=== PATIENT | female | born 1935 | race Caucasian/White ===

== ENCOUNTER → 2023-07-05 08:08 | Outpatient (REF) | payer MEDICARE, OTHER, SELFPAY ==
--- NOTE | 2023-07-05 09:22 | CARDSERVLU ---
Echocardiogram with [facility] completed after protocol screening completed. Allergies verified.
Patent IV site: _Right antecubital 22 G PC____
IV site flushed with 0.9% NaCl pre and post administration.
Diluted bolus method utilized to enhance visualization of ventricular ng.
Total volume given: _3___ mL
Patient tolerated all procedures well without complications.
Heplock D/c ed at 0921, site clear, no redness, no edema. Pressure held for few minutes as pt on anticoagulants. No bleeding, 2x2 applied and taped. Pt offers no complaints.
== END ==
LOC: RCS 08:08
PROVIDERS: ATTENDING PHYSICIAN Internal Medicine Cardiovascular Disease; FAMILY PHYSICIAN Family Medicine
DX: I48.0 Paroxysmal atrial fibrillation (principal); I10 Essential (primary) hypertension
CPT/HCPCS: 93306; Q9950

== ENCOUNTER 2024-12-26 05:36 | Inpatient (IN) | payer MEDICARE, OTHER, SELFPAY ==
[2024-12-25 23:19] VITALS: BP 120/87
[2024-12-26] VITALS (12 sets, daily range): BP systolic 110–153; BP diastolic 49–96; BMI 28.3
[2024-12-26 01:10] LABS: Hematocrit 43.8 % (37.0-47.0); Hemoglobin 14.7 g/dL (12.0-16.0); Mean Corp Hgb Conc. 33.6 g/dL (33.0-37.0); Mean Corpuscular Volume 88.1 fL (81.0-99.0); Nucleated Red Blood Cells % 0 %; Platelet Count 266 10^3/uL (130-400); Red Cell Dist. Width 13.4 % (11.5-14.5)
--- NOTE | 2024-12-26 01:32 | ED.GENMED ---
History of Present Illness
<Sammi Rodriguez MD - Last Filed: 12/26/24 03:06>
General
Chief Complaint: Abdominal Symptoms
Source: patient
Time Seen by Provider: 12/26/24 01:19
History of Present Illness
History of Present Illness:
This patient is an 89-year-old female presents emergency department after developing UTI-like symptoms about a week or so ago. She saw her primary care doctor and her UA was consistent with a UTI put. She was put on antibiotics which she took for
about a week but did not feel any better. She went to see her primary care doctor again and states that she was placed on a different antibiotic which she brought with her, Bactrim. She states since starting this antibiotic, she developed nausea,
followed by several episodes of nonbloody vomiting today. She has anorexia. She describes mid abdominal 'pressure' that developed while in the waiting room that feels like a 'gas'. That pressure is improved compared to earlier, but continues
without specific provoking or relieving factors. She denies fever, chills, flank or back pain, dyspnea, chest pain, diarrhea, constipation, or other complaints.
Past History
<Sammi Rodriguez MD - Last Filed: 12/26/24 03:06>
Past History
ED Past Medical History: Arrthythmia, CAD, GERD, HTN and Other (Kidney stone, PE)
Social History
Tobacco: Non-smoker
Alcohol: Occasional
Drug: None
Personal:
Living: with family
Phy Exam
<Sammi Rodriguez MD - Last Filed: 12/26/24 03:06>
Physical Exam
Physical Exam:
GENERAL: Alert , in no apparent distress
EYE: pupils equal and reactive
NECK: Supple, no significant adenopathy.
ENT: o/p clr, mm slightly dry
CARDIAC: Regular rate and rhythm .
LUNGS: Clear breath sounds bilaterally, no acute respiratory distress, no wheezes/rales/rhonchi
ABDOMEN: Soft, mild mid abdominal tenderness, no r/g, slightly distended, no cvat
NEUROLOGICAL: Alert and oriented, no focal neuro deficits
SKIN: Warm and dry, skin intact.
MUSCULOSKELETAL: No edema, well perfused.
PSYCH: Normal and appropriate interaction.
Sepsis
<Esequiel Sosa DO - Last Filed: 12/27/24 22:45>
Sepsis Screening
Sepsis Assessment: Sepsis
Sepsis Screen
Sepsis Screen: Sepsis
Date: 12/27/24
Time: 22:44
Course
<Sammi Rodriguez MD - Last Filed: 12/26/24 03:06>
Orders/Labs/Results
Orders:
Orders
12/25/24 23:22
Complete Blood Count/With Diff Urgent
Comprehensive Metabolic Panel Urgent
Lipase Urgent
12/26/24 01:30
Morphine Sulfate 4 mg IV NOW STA
12/26/24 01:35
0.9% Sodium Chloride 500 ml [Nss] 500 ml IV BOLUS
12/26/24 02:56
CT Abd/pel Without Iv Or Oral Urgent
Comment:
Reason For Exam: mid abd pain
12/26/24 03:39
NG Tube [GI tube insertion- Treatment] ONCE
12/26/24 04:41
Lidocaine 2% [Lidocaine Uro-Jet 2%] 1 syringe .ROUTE .STK-MED ONE
12/26/24 04:50
Admit/Transfer Patient As Directed
Co-Sign Provider:
Level of Care: Inpatient admission
Assign to:: Telemetry
Physician / Group: Indu
Diagnosis: Small bowel obstruction
Reason for Telemetry: Medication for Arrhythmia
Date to Stop Telemetry: 12/28/24
Time to Stop Telemetry: 11:00
Reason for Hospitalization: Small bowel obstruction
Expected length of stay greater than two midnights?: Yes
ELOS- Estimated Length of Stay in days: 2
I certify the patient meets the requirements for IP care: Yes
12/26/24 04:58
Urinalysis Reflex To Culture Urgent
Date Specimen was Collected: 12/26/24
Time Specimen was Collected: 04:54
Urine Microscopic Reflex Cult Urgent
Urine Culture Urgent
GLENDY Source: U
Specimen Description:
Date Specimen was Collected: 12/26/24
Time Specimen was Collected: 04:54
12/26/24 05:05
PRN Pain Medication Management As Directed
May give lesser potent ordered pain med per pt: Yes
preference::
Protocol:: Medication orders for pain may be administered in a
manner that supports deferring to patient preference
when the pt is:
- Requesting an ordered lesser potent pain medication.
Least to most potent pain medications are defined
as: acetaminophen < NSAID < tramadol < opioids
(morphine, oxycodone, hydromorphone).
- Requesting a lesser dose of the same medication IF
ORDERED.
- Requesting a less intrusive route of administration
if both routes are prescribed by the provider (PO <
IV).
12/26/24 05:10
Code Status As Directed
Resuscitation Status: Full Code
12/26/24 05:24
PRN Pain Medication Management As Directed
May give lesser potent ordered pain med per pt: Yes
preference::
Protocol:: Medication orders for pain may be administered in a
manner that supports deferring to patient preference
when the pt is:
- Requesting an ordered lesser potent pain medication.
Least to most potent pain medications are defined
as: acetaminophen < NSAID < tramadol < opioids
(morphine, oxycodone, hydromorphone).
- Requesting a lesser dose of the same medication IF
ORDERED.
- Requesting a less intrusive route of administration
if both routes are prescribed by the provider (PO <
IV).
12/26/24 05:34
CR Chest - 2 Views Stat
Comment:
Reason For Exam: SOB, ng tube placement
12/26/24 05:42
Acetaminophen [Tylenol/Feverall] 650 mg RECTAL Q4HPRN PRN
HYDROmorphone [Dilaudid] 0.5 mg IV Q4HPRN PRN
Ipratropium/Albuterol Sulfate [Duoneb] 3 ml INH R Q4HPRN PRN
Ondansetron Injectable [Zofran] 4 mg IV Q6HPRN PRN
12/26/24 05:42
Consult Notification Routine
Specialty to Notify: Nephrology
Date consulting provider notified: 12/26/24
Time consulting provider notified: 14:15
Notified:: Provider
NEPHROLOGY CONSULT Routine
Consulting Provider: Kareen Shaikh
Was physician already notified: No
Reason for consult: ADELA, SBO, recent abx use
SURGICAL CONSULT Routine
Consulting Provider: Edy Stephens
Was physician already notified: Yes
VTE Contraindication Routine
VTE Mechanical Device Contraindication: Medical Contraindication
Pharmocologic Contraindication: Medical Contraindication
Activity As Directed
Activity Level: With Assistance
Gastrointestinal Tubes As Directed
Type: [place] sump
To suction?: Yes
Type of suction: Low intermittent
Directions to clamp NG tube: for activity
Irrigate tube?: Yes
Irrigant: Tap Water
Frequency: Q4H
Amount in mls: 30
Irrigation Directions: Irrigate Q4H and PRN
Intake/ Output As Directed
Frequency: Per unit guidelines
Vital Signs As Directed
Frequency: Per unit guidelines
Weight As Directed
Frequency: Daily
Pulse Ox/cont/shift [RESP] Routine
Quantity: 1
Pulse Ox/spot Check [RESP] Routine
Quantity: 1
12/26/24 05:56
Basic Metabolic Panel IN AM
Complete Blood Count/No Diff IN AM
Magnesium IN AM
12/26/24 Breakfast
NPO
Allow oral meds: Yes
Allow clear liquids: No
NPO with Ice Chips: Yes
Dextrose 5%/0.9%Sodchl 1000 ml [D5/0.9% Sodium Chloride] 1,000 ml IV 100 mls/hr
12/26/24 08:00
Budesonide/Formoterol 160/4.5 [Symbicort 160/4.5 Mcg Inhaler] 2 puff INH R BID
12/26/24 18:00
Amiodarone [Pacerone] 200 mg PO QPM
Amlodipine [Norvasc] 5 mg PO QPM
Metoprolol Xl [Toprol Xl] 25 mg PO QPM
Rivaroxaban [Xarelto] 15 mg PO QPM
12/26/24 22:00
Famotidine [Pepcid] 20 mg IV HS
12/28/24 11:00
DC Protocol for Telemetry ONCE
Abnormal Lab Results
12/26/24 12/26/24
00:54 04:58
MPV 11.1 H fL
(7.4-10.4)
Abs Immat Gran (auto) 0.1 H 10^3/uL
(0-0.05)
Absolute Neuts (auto) 8.3 H 10^3/uL
(1.4-6.5)
Absolute Lymphs (auto) 0.6 L 10^3/uL
(1.2-3.4)
Immature Gran % 0.6 H %
(0-0.5)
Neutrophils % 85.9 H %
(42.2-75.2)
Lymphocytes % 6.4 L %
(20.5-51.1)
Potassium 5.3 H mmol/L
(3.5-5.1)
Carbon Dioxide 20 L mmol/L
(22-30)
BUN 38 H mg/dl
(7-17)
Creatinine 1.9 H mg/dL
(0.6-1.0)
Glucose 159 H mg/dl
(70-99)
Calcium 10.5 H mg/dl
(8.4-10.2)
AST 53 H U/L
(14-36)
ALT 65 H U/L
(0-35)
Ur Occult Blood Reflex 2+ A
(Negative)
Leukocyte Esterase Rfl 3+ A
(Negative)
Urine WBC (Reflex) 90-100 A /HPF
(0-5)
Urine Albumin (Reflex) 2+ A
(Neg - Trace)
12/26/24 00:54
12/26/24 00:54
Vital Signs
Initial and Last Documented VS:
Initial Vital Signs
Temp Pulse Resp BP Pulse Ox
97.5 F 67 18 120/87 97
12/25/24 23:19 12/25/24 23:19 12/25/24 23:19 12/25/24 23:19 12/25/24 23:19
Last Documented Vital Signs
Temp Pulse Resp BP Pulse Ox
97.9 F 66 16 147/68 95
12/27/24 19:20 12/27/24 19:40 12/27/24 19:40 12/27/24 19:20 12/27/24 19:40
Elsielt;Esequiel Sosa, DO - Last Filed: 12/27/24 22:45>
Orders/Labs/Results
Orders:
Orders
12/25/24 23:22
Complete Blood Count/With Diff Urgent
Comprehensive Metabolic Panel Urgent
Lipase Urgent
12/26/24 01:30
Morphine Sulfate 4 mg IV NOW STA
12/26/24 01:35
0.9% Sodium Chloride 500 ml [Nss] 500 ml IV BOLUS
12/26/24 02:56
CT Abd/pel Without Iv Or Oral Urgent
Comment:
Reason For Exam: mid abd pain
12/26/24 03:39
NG Tube [GI tube insertion- Treatment] ONCE
12/26/24 04:41
Lidocaine 2% [Lidocaine Uro-Jet 2%] 1 syringe .ROUTE .STK-MED ONE
12/26/24 04:50
Admit/Transfer Patient As Directed
Co-Sign Provider:
Level of Care: Inpatient admission
Assign to:: Telemetry
Physician / Group: Indu
Diagnosis: Small bowel obstruction
Reason for Telemetry: Medication for Arrhythmia
Date to Stop Telemetry: 12/28/24
Time to Stop Telemetry: 11:00
Reason for Hospitalization: Small bowel obstruction
Expected length of stay greater than two midnights?: Yes
ELOS- Estimated Length of Stay in days: 2
I certify the patient meets the requirements for IP care: Yes
12/26/24 04:58
Urinalysis Reflex To Culture Urgent
Date Specimen was Collected: 12/26/24
Time Specimen was Collected: 04:54
Urine Microscopic Reflex Cult Urgent
Urine Culture Urgent
GLENDY Source: U
Specimen Description:
Date Specimen was Collected: 12/26/24
Time Specimen was Collected: 04:54
12/26/24 05:05
PRN Pain Medication Management As Directed
May give lesser potent ordered pain med per pt: Yes
preference::
Protocol:: Medication orders for pain may be administered in a
manner that supports deferring to patient preference
when the pt is:
- Requesting an ordered lesser potent pain medication.
Least to most potent pain medications are defined
as: acetaminophen < NSAID < tramadol < opioids
(morphine, oxycodone, hydromorphone).
- Requesting a lesser dose of the same medication IF
ORDERED.
- Requesting a less intrusive route of administration
if both routes are prescribed by the provider (PO <
IV).
12/26/24 05:10
Code Status As Directed
Resuscitation Status: Full Code
12/26/24 05:24
PRN Pain Medication Management As Directed
May give lesser potent ordered pain med per pt: Yes
preference::
Protocol:: Medication orders for pain may be administered in a
manner that supports deferring to patient preference
when the pt is:
- Requesting an ordered lesser potent pain medication.
Least to most potent pain medications are defined
as: acetaminophen < NSAID < tramadol < opioids
(morphine, oxycodone, hydromorphone).
- Requesting a lesser dose of the same medication IF
ORDERED.
- Requesting a less intrusive route of administration
if both routes are prescribed by the provider (PO <
IV).
12/26/24 05:34
CR Chest - 2 Views Stat
Comment:
Reason For Exam: SOB, ng tube placement
12/26/24 05:42
Acetaminophen [Tylenol/Feverall] 650 mg RECTAL Q4HPRN PRN
HYDROmorphone [Dilaudid] 0.5 mg IV Q4HPRN PRN
Ipratropium/Albuterol Sulfate [Duoneb] 3 ml INH R Q4HPRN PRN
Ondansetron Injectable [Zofran] 4 mg IV Q6HPRN PRN
12/26/24 05:42
Consult Notification Routine
Specialty to Notify: Nephrology
Date consulting provider notified: 12/26/24
Time consulting provider notified: 14:15
Notified:: Provider
NEPHROLOGY CONSULT Routine
Consulting Provider: Kareen Shaikh
Was physician already notified: No
Reason for consult: ADELA, SBO, recent abx use
SURGICAL CONSULT Routine
Consulting Provider: Edy Stephens
Was physician already notified: Yes
VTE Contraindication Routine
VTE Mechanical Device Contraindication: Medical Contraindication
Pharmocologic Contraindication: Medical Contraindication
Activity As Directed
Activity Level: With Assistance
Gastrointestinal Tubes As Directed
Type: [place] sump
To suction?: Yes
Type of suction: Low intermittent
Directions to clamp NG tube: for activity
Irrigate tube?: Yes
Irrigant: Tap Water
Frequency: Q4H
Amount in mls: 30
Irrigation Directions: Irrigate Q4H and PRN
Intake/ Output As Directed
Frequency: Per unit guidelines
Vital Signs As Directed
Frequency: Per unit guidelines
Weight As Directed
Frequency: Daily
Pulse Ox/cont/shift [RESP] Routine
Quantity: 1
Pulse Ox/spot Check [RESP] Routine
Quantity: 1
12/26/24 05:56
Basic Metabolic Panel IN AM
Complete Blood Count/No Diff IN AM
Magnesium IN AM
12/26/24 Breakfast
NPO
Allow oral meds: Yes
Allow clear liquids: No
NPO with Ice Chips: Yes
Dextrose 5%/0.9%Sodchl 1000 ml [D5/0.9% Sodium Chloride] 1,000 ml IV 100 mls/hr
12/26/24 08:00
Budesonide/Formoterol 160/4.5 [Symbicort 160/4.5 Mcg Inhaler] 2 puff INH R BID
12/26/24 18:00
Amiodarone [Pacerone] 200 mg PO QPM
Amlodipine [Norvasc] 5 mg PO QPM
Metoprolol Xl [Toprol Xl] 25 mg PO QPM
Rivaroxaban [Xarelto] 15 mg PO QPM
12/26/24 22:00
Famotidine [Pepcid] 20 mg IV HS
12/28/24 11:00
DC Protocol for Telemetry ONCE
Abnormal Lab Results
12/26/24 12/26/24
00:54 04:58
MPV 11.1 H fL
(7.4-10.4)
Abs Immat Gran (auto) 0.1 H 10^3/uL
(0-0.05)
Absolute Neuts (auto) 8.3 H 10^3/uL
(1.4-6.5)
Absolute Lymphs (auto) 0.6 L 10^3/uL
(1.2-3.4)
Immature Gran % 0.6 H %
(0-0.5)
Neutrophils % 85.9 H %
(42.2-75.2)
Lymphocytes % 6.4 L %
(20.5-51.1)
Potassium 5.3 H mmol/L
(3.5-5.1)
Carbon Dioxide 20 L mmol/L
(22-30)
BUN 38 H mg/dl
(7-17)
Creatinine 1.9 H mg/dL
(0.6-1.0)
Glucose 159 H mg/dl
(70-99)
Calcium 10.5 H mg/dl
(8.4-10.2)
AST 53 H U/L
(14-36)
ALT 65 H U/L
(0-35)
Ur Occult Blood Reflex 2+ A
(Negative)
Leukocyte Esterase Rfl 3+ A
(Negative)
Urine WBC (Reflex) 90-100 A /HPF
(0-5)
Urine Albumin (Reflex) 2+ A
(Neg - Trace)
12/26/24 00:54
12/26/24 00:54
Vital Signs
Initial and Last Documented VS:
Initial Vital Signs
Temp Pulse Resp BP Pulse Ox
97.5 F 67 18 120/87 97
12/25/24 23:19 12/25/24 23:19 12/25/24 23:19 12/25/24 23:19 12/25/24 23:19
Last Documented Vital Signs
Temp Pulse Resp BP Pulse Ox
97.9 F 66 16 147/68 95
12/27/24 19:20 12/27/24 19:40 12/27/24 19:40 12/27/24 19:20 12/27/24 19:40
<Sammi Rodriguez MD - Last Filed: 12/26/24 03:06>
*Pulse Oximetry
SaO2: 98
Oxygen Mode of Delivery: Room air
<Esequiel Sosa DO - Last Filed: 12/27/24 22:45>
*Pulse Oximetry
Patient hypoxic: no
*Critical Care Note
Total Time (30-74mins, 75-104mins- exclusive of procedures): Not Applicable
<Sammi Rodriguez MD - Last Filed: 12/26/24 03:06>
Update Note
Update Note:
Patient presents to the Emergency Department with abdominal pain nausea vomiting
Number and Complexity of Problems Addressed at the Encounter
� Chronic conditions affecting care:
� Acute Exacerbation and/or Progression of Chronic Illness:
� Differential Diagnosis includes: But not limited to
Amount and/or Complexity of Data to be Reviewed and Analyzed
� I performed an independent evaluation of and my interpretation is:
EKG:
CT:
Xrays:
Laboratory Studies: Normal white blood cell count hemoglobin and platelets
Other:
� Review of other/old records reveals:
� Clinical information was obtained by an independent historian:
� Prescriptions/Medications Considered but not given:
� Further testing considered but not performed:
Risk of Complications and/or Morbidity or Mortality of Patient Management
� Social determinants of health affecting care:
� Discussion with other providers (PCP, Hospitalists, Consultants, etc):
� Escalation of care including admission/observation vs risk of discharge considered: CT pending, labs consistent with new renal insufficiency, IV fluids started, patient will be admitted, signout regarding follow-up on studies.
ED Attending Note
<Sammi Rodriguez MD - Last Filed: 12/26/24 03:06>
-
Portions of this chart may have been created with voice recognition software.� Occasional wrong word or��sound alike� substitutions may have occurred due to the inherent limitations of voice recognition software.
<Esequiel Sosa DO - Last Filed: 12/27/24 22:45>
ED Attending Note
Patient seen and examined by attending physician: Yes
ED Attending Note:
89-year-old female with abdominal distention. CT scan shows distal SBO. Patient to be admitted to the hospitalist service. NG tube will be placed. Also renal insufficiency. Patient seen in signout. On my independent physical exam she is awake
alert and oriented. Minimal acute distress. Answering appropriate questions. Does not request any pain medication at this time. Hospitalist aware of admission.
Discharge Plan
Departure
Patient Disposition: Admit
Date of Disposition: 12/26/24
Time of Disposition: 03:48
Presentation/result/management discussed w/ accepting MD/DO: Hospitalist
Discharge Problem:
SBO (small bowel obstruction), Acute kidney injury
Interventions
Interventions:
*Risk Screen - Suicide Last Done: 12/26/24 00:48
*General Assessment Last Done: 12/26/24 00:48
*Neglect/Abuse Screening Last Done: 12/26/24 00:48
*ED- Fall Risk Assessment Last Done: 12/26/24 00:48
*ED COVID-19 Vaccine History Last Done: 12/26/24 00:48
*ED Influenza Vaccine History Last Done: 12/26/24 00:48
*Nursing Disposition Last Done: 12/26/24 14:03
DP-Edxnep-Uvsmkbyvtf Assessment Last Done: 12/26/24 00:48
Discharge Date and Time
Discharge Date/Time: 12/26/24 14:04
[2024-12-26 01:34] LABS: ALT (SGPT) 65 U/L (0-35); AST (SGOT) 53 U/L (14-36); Albumin 4.7 g/dl (3.5-5.0); Alkaline Phosphatase 80 U/L (38-126); Blood Urea Nitrogen 38 mg/dl (7-17); Calcium 10.5 mg/dl (8.4-10.2); Carbon Dioxide 20 mmol/L (22-30); Chloride 104 mmol/L (98-107); Estimated Creatinine Clearance 21 ml/min; Glucose 159 mg/dl (70-99); Lipase 78 U/L (23-300); Potassium 5.3 mmol/L (3.5-5.1); Sodium 135 mmol/L (135-145); Total Protein 8.2 g/dl (6.3-8.2); eGFR 25.24
[2024-12-26] MEDS: NSS 500 IV (01:55)
[2024-12-26] MEDS: MORPHINE SULFATE 4 MG IV (01:55)
--- NOTE | 2024-12-26 04:27 | HPS.HSE ---
Family Physician
-
Family Physician: Joe Manning
Chief Complaint
-
Abdominal pain
History of Present Illness
This is a 89-year-old who has past medical history significant for atrial fibrillation on anticoagulation and status post cardioversion and prior PVI ablation, GERD, hyperlipidemia, hypothyroid, hypertension, CAD, obesity, scheduled for left kidney
presenting to the emergency department with worsening abdominal symptoms.
Patient reported that she had developed symptoms consistent with urinary tract infection about 2wks week ago. Symptoms worsening trace of blood on her depends. She did not have dysuria urgency or frequency. She had a UA which was also consistent
with a UTI and she was placed on antibiotics for which she took about 1 week and did not have any improvements in the intermittent hematuria.. She was seen by PMD again and was then started on Bactrim. She stated that after starting the Bactrim
she developed nausea and multiple nonbloody nonbilious emesis. She took Bactrim for about 3 days. Since then she has not been able to tolerate p.o. She describes mid abdominal discomfort and a sensation of bloating. She also reports inability to
inhale deeply which she attributes to the abdominal distention. She denies having any diarrhea. She denies any flank pain, urgency and incontinence or dysuria. She denies any prior constipation. She reports her pressure is improved compared to
prior.
In the emergency department he was afebrile, blood pressure was 117/54 with a pulse rate of 63 and she was satting 96% on room air.
CBC was unremarkable electrolytes were stable, BUN and creatinine were elevated at 39 and 1.9 compared to her baseline of 15 and 0.7 respectively. There is a mild elevation in AST and ALT but normal bilirubin and alk phos.
Patient had a CT of the abdomen pelvis without contrast showing findings compatible with distal small bowel obstruction, dilated fluid loops of small bowel throughout the abdomen and pelvis measuring up to 4.1 cm in diameter with abrupt transition
points seen centrally to lower abdomen. No signs of ischemia or perforation. Moderate distention of the stomach. Nonobstructing left nephrolithiasis.
Medical History
Past Medical History
Past Medical History: Reports Other
Additional Past Medical History:
CAD
Hypertension
Atrial fibrillation status post cardioversion ,status post PVI and ablation 2011
GERD
Hypothyroid
Depression
Obesity
Nephrolithiasis
History of PE
Past Surgical History: Reports Bowel Resection (Bowel resection for a nonmalignant mass with reanastomosis.), Urological (Left ureteroscopy with stone removal) and Other (Left lumpectomy)
Social History
Tobacco: Non-smoker
Alcohol: None
Drug: None
Personal:
Living: With Family
Family History
Family History: Not pertinent
Allergies / Home Medications
Allergies reflects when Allergies were last updated in [facility].
Home Medications with original date entered in [facility] [facility]
Allergy/Medication List:
Allergies
Allergy/AdvReac Type Severity Reaction Status Date / Time
No Known Allergies Allergy Verified 12/08/22 11:18
Home Medications
escitalopram oxalate 20 mg tablet 20 mg PO QPM Mental Health/Anxiety 04/03/11
simvastatin 20 mg tablet 20 mg PO QPM High cholesterol 03/03/19
amlodipine 5 mg tablet 5 mg PO QPM Blood pressure 05/09/21
metoprolol succinate 25 mg tablet,extended release 24 hr 25 mg PO QPM Arrhythmia 05/09/21
amiodarone 200 mg tablet (Pacerone) 200 mg PO QPM Arrhythmia #30 tabs 05/22/21
rivaroxaban 20 mg tablet (Xarelto) 20 mg PO QPM Blood clot prevention/tx #30 tabs 05/22/21
biotin 5,000 mcg sublingual tablet 5,000 mcg sublingual DAILY 06/22/22
budesonide 160 mcg-glycopyr 9 mcg-formot 4.8 mcg/actuation HFA inhaler (Breztri Aerosphere) 2 inh inhalation BID 06/22/22
famotidine 20 mg tablet (Pepcid) 20 mg PO QPM 06/22/22
furosemide 20 mg tablet (Lasix) 20 mg PO DAILY 06/22/22
arformoterol 15 mcg/2 mL solution for nebulization 2 ml inhalation DAILY 12/08/22
bupropion HCl 150 mg 24 hr tablet, extended release 150 mg PO DAILY 12/26/24
Review of Systems
-
Constitutional: Reports No Symptoms
EENT: Reports No Symptoms
Respiratory: Reports No Symptoms
Cardiac: Reports No Symptoms
Abdomen/GI: Reports Abdominal Pain, Nausea and Vomiting
: Reports No Symptoms
Musculoskeletal: Reports No Symptoms
Skin: Reports No Symptoms
Neurological: Reports No Symptoms
Endocrine: Reports No Symptoms
Hematologic/Lymphatic: Reports No Symptoms
Psych: Reports No Symptoms
Physical Exam
Vital Signs
Vital Signs
Temp Pulse Resp BP Pulse Ox
97.5 F 63 23 117/54 96
12/25/24 23:19 12/26/24 03:45 12/26/24 03:45 12/26/24 02:07 12/26/24 03:45
Physical Exam
General: Well Developed, Well Nourished and No Apparent Distress
HEENT: NormoCephalic, Moist mucous membranes and Atraumatic
Respiratory: Clear and Other (Conversationally dyspneic)
Cardiac: S1/S2 and Regular Rhythm; No Murmur or Rub
GI: Soft, Non Tender, Normal Bowel Sounds and Distended (moderately distended); No Organomegaly
Rectal: Deferred by Provider
Musculoskeletal: No Clubbing, No Cyanosis and No Edema
Skin: No Rash
Neuro: AO x 3 and Nonfocal/grossly intact
Laboratory Results
-
12/26/24 00:54
12/26/24 00:54
Laboratory Results
Total Bilirubin 1.2 mg/dl (0.2-1.3) 12/26/24 00:54
AST 53 U/L (14-36) H 12/26/24 00:54
ALT 65 U/L (0-35) H 12/26/24 00:54
Alkaline Phosphatase 80 U/L (38-126) 12/26/24 00:54
Lipase 78 U/L (23-300) 12/26/24 00:54
Data Reviewed
-
CT Scan: Report Reviewed by me
Lab Data: Labs Reviewed by me
Old Records: Reviewed
Impression/Plan
-
IMPRESSION:
89-year-old with past medical history significant for atrial fibrillation on anticoagulation, hypertension, GERD, hyperlipidemia who presents with complaints of abdominal pain nausea and vomiting in the setting of 1 week management of urinary tract
infection symptoms and positive outpatient UA for which she underwent 1 week treatment with antibiotics without improvement and then currently on Bactrim. Found to have small bowel obstruction with transition point on CT scan without ischemia.
Labs notable for hyperkalemia to 5.3, ADELA with a creatinine of 3.9 and a BUN of 39. She has no signs of systemic infection. There is no leukocytosis.
PLAN:
Small bowel obstruction - h/o bowel resection, no other intraabdominal surgery, sbo likely on the basis of adhesions
- Admit to MedSurg
- Given degree of obstruction on CT scan and abdominal symptoms, NG tube placed
- N.p.o. for now except meds
- Patient on furosemide, holding that for now
- Gentle hydration
- Surgery consult
ADELA -creatinine 1.9 up from a baseline of 0.7. BUN also elevated. This in the setting of recent UTI, antibiotic use and decreased p.o. intake. Likely multifactorial with prerenal azotemia plus possible intrinsic renal disease from
antibiotics/interstitial nephritis. 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
- Holding Bactrim for now
- UA, and urine sediments
- IV fluids for now, monitor i/o, weight, edema and respiratory status
- Avoid nephrotoxin
- Nephrology consult
Urinary tract symptoms - mostly hematuria. No dysuria, frequency/urgency or flank pain. H/O nephrolithiasis with nonobstructing left kidney stone on current CT. She is on rivaroxaban.
- Obtain UA and urine culture,
- IV ceftriaxone for clearly positive u/a given apparent failure of oral outpatient tx
Atrial fibrillation-
- Continue metoprolol succinate daily
- Continue Xarelto 15mg for now
Emphysema - Some conversational dyspnea. NO wheezing. No hypoxia. No peripheral edema
- obtain chest xray
- decompression w/ ng
- continue nebs prn
- continue ICS/LABA
DVT prophylaxis�on Xarelto
CODE STATUS�DNR
[2024-12-26 05:05] LABS: Urine Character Clear (Clear)
[2024-12-26 05:22] LABS: Urine Red Blood Cell 0-2 /HPF (0-2)
[2024-12-26 05:23] LABS: Urine White Cell 90-100 /HPF (0-5)
[2024-12-26] MEDS: D5/0.9% SODIUM CHLORIDE 1000 IV (06:23)
[2024-12-26 06:31] LABS: Hematocrit 37.8 % (37.0-47.0); Hemoglobin 12.6 g/dL (12.0-16.0); Mean Corp Hgb Conc. 33.3 g/dL (33.0-37.0); Mean Corpuscular Volume 88.9 fL (81.0-99.0); Platelet Count 242 10^3/uL (130-400); Red Cell Dist. Width 13.5 % (11.5-14.5)
[2024-12-26] MEDS: ROCEPHIN 1000 MG IV (06:35)
[2024-12-26] MEDS: STERILE WATER FOR INJECTION 10 ML IV (06:36)
[2024-12-26 06:59] LABS: Blood Urea Nitrogen 39 mg/dl (7-17); Calcium 9.3 mg/dl (8.4-10.2); Carbon Dioxide 20 mmol/L (22-30); Chloride 106 mmol/L (98-107); Estimated Creatinine Clearance 24 ml/min; Glucose 142 mg/dl (70-99); Magnesium 1.9 mg/dl (1.6-2.3); Potassium 4.8 mmol/L (3.5-5.1); Sodium 134 mmol/L (135-145); eGFR 28.84
[2024-12-26] MEDS: SPIRIVA RESPIMAT 2.5 MCG 2 PUFF INH (07:34)
[2024-12-26] MEDS: SYMBICORT 160/4.5 MCG INHALER 2 PUFF INH ×2 (07:34→20:00)
--- NOTE | 2024-12-26 09:05 | CON.GS ---
Addendum entered and electronically signed by Edy Stephens MD 12/26/24 13:47:
Patient seen and examined.
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
Ms. Morrow presents with several week of worsening abdominal discomfort, nausea, vomiting. She states that her symptoms have been slowly developing for the past month. Approximately 2 weeks ago she developed hematuria was treated for a UTI with a
course of antibiotics. Her abdominal pain has persisted was recently accompanied by nausea and vomiting prompting presentation to the ER. Last flatus and bowel movement were yesterday. No clear dietary indiscretion. She denies any prior episodes
of bowel obstructions. Currently she feels improved.
Gen: NAD
Abd: soft, mild tenderness, distended/obese, no tympany, non-peritoneal, prior incision well healed
Labs and imaging reviewed
Patient is an 89 yo F p/w SBO likely secondary to adhesions
Natural history and pathophysiology of bowel obstructions was discussed. CT scan imaging was reviewed. No evidence of pneumatosis or free air. No clinical radiographic concern sustaining a more urgent operative intervention. Recommend a trial of
medical management with bowel rest and NGT decompression. All questions answered.
-- NPO, IVF, NGT decompression
-- Repeat imaging with contrast if no improvement over the next 24-48 hours
-- Correct lytes, minimize narcotics
-- Treatment of UTI per Hospitalist, currently on Ceftriaxone
Original Note:
Consultation
-
Date/Time Consultation Requested: 12/26/2024 05:42
Date/Time Consultation Performed: 12/26/2024 11:30
Requesting Provider: Ash Griggs MD
Performing Provider: Edy Stephens MD; Delphine Fox MD
Reason for Consultation: Small Bowel Obstruction
Medical History
-
Chief Complaint: Abdominal Pain, Vomiting
History of Present Illness:
89-year-old female with a past medical history significant for CAD, atrial fibrillation on Xarelto (last dose 12/24/2024), status post cardioversion 2x, GERD, hyperlipidemia, hypertension, and obesity; surgical history notable for bowel resection
for a nonmalignant mass with reanastomosis and removal of appendix, left ureteroscopy with stone removal, and left lumpectomy; presenting with abdominal pain and vomiting.
One month prior to admission, the patient developed intermittent �band-like pressure� in the supraumbilical area, associated with hematuria 2 weeks later. She was managed as a case of UTI and completed one course of antibiotics without improvement
in abdominal discomfort. She was started on a new antibiotic, but abdominal pain persisted, now accompanied by nausea. Two days prior to presentation, the pain and nausea worsened, and the pressure like pain became more constant and painful,
accompanied by belching and five episodes of bilious vomiting, the last occurring in the ER waiting area. She denies fever, diarrhea, constipation, or dysuria.
She reports adherence to a high-protein, vegetable-based dietary regimen since January 2023, with a 50-lb weight loss. Last bowel movement was early this morning, small in quantity, non-bloody, formed, accompanied by gas. Currently, she reports
that her abdominal pain has improved significantly.
WBC: 7.9
AST 53, ALT 65, Mild hyponatremia- 134, CO2- 20L, BUN 39H, Creatinine 1.7
CT shows: dilated fluid loops of small bowel throughout the abdomen and pelvis with abrupt transition points seen centrally to lower abdomen.� No signs of ischemia or perforation.� Moderate distention of the stomach.�
Past Medical History
Past Medical History: Arrhythmias (Paroxysmal Atrial Fibrillation on Xarelto), Asthma, GERD, Hypercholesterolemia and Other (Obesity, LIAN, History of PE)
Past Surgical History: Bowel Resection (Bowel resection of nonmalignant mass with reastomosis), Urological (Left ureteroscopy with stone removal, Cystoscopy with Macroplastique Injection) and Other (Left Lumpectomy, Electrical Cardioversion 07/09
and 12/09 )
Social History
Tobacco: Non-Smoker
Alcohol: None
Drug: None
Personal:
Living: With Family
Family History
Family History: Reviewed & Not Pertinent
Allergies / Home Medications
Allergy/AdvReac Type Severity Reaction Status Date / Time
No Known Allergies Allergy Verified 12/08/22 11:18
�Medication �Instructions �Recorded �Confirmed �Type
escitalopram oxalate 20 mg tablet 20 mg PO QPM Mental Health/Anxiety 04/03/11 12/26/24 History
simvastatin 20 mg tablet 20 mg PO QPM High cholesterol 03/03/19 12/26/24 History
amlodipine 5 mg tablet 5 mg PO QPM Blood pressure 05/09/21 12/26/24 History
metoprolol succinate 25 mg 25 mg PO QPM Arrhythmia 05/09/21 12/26/24 History
tablet,extended release 24 hr
amiodarone 200 mg tablet (Pacerone) 200 mg PO QPM Arrhythmia #30 tabs 05/22/21 12/26/24 Rx
rivaroxaban 20 mg tablet (Xarelto) 20 mg PO QPM Blood clot 05/22/21 12/26/24 Rx
prevention/tx #30 tabs
biotin 5,000 mcg sublingual tablet 5,000 mcg sublingual DAILY 06/22/22 12/26/24 History
budesonide 160 mcg-glycopyr 9 2 inh inhalation BID 06/22/22 12/26/24 History
mcg-formot 4.8 mcg/actuation HFA
inhaler (Breztri Aerosphere)
famotidine 20 mg tablet (Pepcid) 20 mg PO QPM 06/22/22 12/26/24 History
furosemide 20 mg tablet (Lasix) 20 mg PO DAILY 06/22/22 12/26/24 History
arformoterol 15 mcg/2 mL solution 2 ml inhalation DAILY 12/08/22 12/26/24 History
for nebulization
bupropion HCl 150 mg 24 hr tablet, 150 mg PO DAILY 12/26/24 12/26/24 History
extended release
Review of Systems
-
History Source: Patient
A 10 point review of systems was completed, and was negative except as per HPI.
Physical Exam
Vital Signs
Temp Pulse Resp BP Pulse Ox
97.5 F 69 28 119/49 95
12/25/24 23:19 12/26/24 09:00 12/26/24 09:00 12/26/24 04:37 12/26/24 05:45
12/25/24 12/26/24 12/27/24
06:59 06:59 06:59
Actual Weight 77.11 kg
Body Mass Index (BMI) 28.3
Lab Results
12/26/24 05:56
12/26/24 05:56
WBC 7.9 10^3/uL (4.8-10.8) 12/26/24 05:56
Hgb 12.6 g/dL (12.0-16.0) 12/26/24 05:56
Hct 37.8 % (37.0-47.0) 12/26/24 05:56
Plt Count 242 10^3/uL (130-400) 12/26/24 05:56
Abs Immat Gran (auto) 0.1 10^3/uL (0-0.05) H 12/26/24 00:54
Neutrophils % 85.9 % (42.2-75.2) H 12/26/24 00:54
Physical Exam
General: No Apparent Distress; Negative Fever
HEENT: Other
Respiratory: Non Labored Respirations
GI: Tender (mildly at supraumbilical), Distended and Other (Firm)
Skin: Warm
Neuro: AO x 3
Psych: Calm
Data Reviewed
-
CT Scan: Image Personally Visualized and interpreted (by attending surgeon), Report Reviewed by me (and by attending surgeon) and Discussed with Patient (by attending surgeon)
Assessment / Plan
-
89-year-old female with a past medical history significant for CAD, atrial fibrillation on Xarelto (last dose 12/24/2024), status post cardioversion 2x, GERD, hyperlipidemia, hypothyroidism, hypertension, and obesity; surgical history notable for
bowel resection for a nonmalignant mass with reanastomosis with appendectomy, left ureteroscopy with stone removal, and left lumpectomy; presenting with band-like supraumbilical abdominal pain and 5x vomiting. 50lbs weightloss in 2 years, high
protein with vegetables diet. LBM: this morning with flatus. �She denies fever, diarrhea, constipation, or dysuria. At time of consult, patient attached to NGT tube and reported significant relief from abdominal pain.
WBC: 7.9
AST 53, ALT 65, Mild hyponatremia- 134, CO2- 20L, BUN 39H, Creatinine 1.7
CT: dilated fluid loops of small bowel throughout the abdomen and pelvis with abrupt transition points seen centrally to lower abdomen.� No signs of ischemia or perforation.� Moderate distention of the stomach.�
#Small Bowel Obstructions
-NGT decompression
-NPO and bowel rest
-on IV Rocephin
-IV fluids
-Pain management and antiemetics
-DVT prophylaxis
-Medical management per primary team
--- NOTE | 2024-12-26 11:43 | W.CON.NEPH ---
Consultation
-
Date/Time Consultation Requested: 12/26/24 0542
Date/Time Consultation Performed: 12/26/24 1200
Requesting Provider: Neli Griggs MD
Performing Provider: Kareen Lugo
Reason for Consultation: ADELA
Medical History
-
Chief Complaint: abd pain
History of Present Illness:
89-year-old who has past medical history significant for atrial fibrillation on anticoagulation with Xarelto and status post cardioversion and prior PVI ablation on Amiodarone, GERD on pepcid, hyperlipidemia on statin, hypothyroid, hypertension on
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
Patient reported that she had developed UTI symptoms about 2wks week ago and she was placed on antibiotics for which she took about 1 week and did not have any improvements in the intermittent hematuria.. She was seen by PMD again and was then
started on Bactrim. She stated that after starting the Bactrim she developed nausea and multiple nonbloody nonbilious emesis. She took Bactrim for about 3 days. Since then she has not been able to tolerate p.o. She describes mid abdominal
discomfort and a sensation of bloating. She also reports inability to inhale deeply which she attributes to the abdominal distention. She denies having any diarrhea. She denies any flank pain, urgency and incontinence or dysuria. Labs shows
BUN and creatinine were elevated at 39 and 1.9 compared to her baseline of 34 and 1.16 respectively in 05/2024. CT of the abdomen pelvis without contrast shows findings compatible with distal small bowel obstruction-prelim report. Offers no CP or
sob. Currently has NGT and feels better. No flatus, had BM yesterday. No fever or cough. Nephrology consulted for ADELA.
Past Medical History
CAD
Hypertension
Atrial fibrillation status post cardioversion ,status post PVI and ablation 2011
GERD
Hypothyroid
Depression
Obesity
Nephrolithiasis
History of PE
Atrophic right kidney
Past Surgical History: Other (Bowel resection for a nonmalignant mass with reanastomosis.), Urological (Left ureteroscopy with stone removal) and Other (Left lumpectomy)
Social History
Tobacco: Non-Smoker
Alcohol: None
Drug: None
Personal:
Living: With Family
Family History
Family History: Not Pertinent
Allergies / Home Medications
Allergy/AdvReac Type Severity Reaction Status Date / Time
No Known Allergies Allergy Verified 12/08/22 11:18
�Medication �Instructions �Recorded �Confirmed �Type
escitalopram oxalate 20 mg tablet 20 mg PO QPM Mental Health/Anxiety 04/03/11 12/26/24 History
simvastatin 20 mg tablet 20 mg PO QPM High cholesterol 03/03/19 12/26/24 History
amlodipine 5 mg tablet 5 mg PO QPM Blood pressure 05/09/21 12/26/24 History
metoprolol succinate 25 mg 25 mg PO QPM Arrhythmia 05/09/21 12/26/24 History
tablet,extended release 24 hr
amiodarone 200 mg tablet (Pacerone) 200 mg PO QPM Arrhythmia #30 tabs 05/22/21 12/26/24 Rx
rivaroxaban 20 mg tablet (Xarelto) 20 mg PO QPM Blood clot 05/22/21 12/26/24 Rx
prevention/tx #30 tabs
biotin 5,000 mcg sublingual tablet 5,000 mcg sublingual DAILY 06/22/22 12/26/24 History
budesonide 160 mcg-glycopyr 9 2 inh inhalation BID 06/22/22 12/26/24 History
mcg-formot 4.8 mcg/actuation HFA
inhaler (Breztri Aerosphere)
famotidine 20 mg tablet (Pepcid) 20 mg PO QPM 06/22/22 12/26/24 History
furosemide 20 mg tablet (Lasix) 20 mg PO DAILY 06/22/22 12/26/24 History
arformoterol 15 mcg/2 mL solution 2 ml inhalation DAILY 12/08/22 12/26/24 History
for nebulization
bupropion HCl 150 mg 24 hr tablet, 150 mg PO DAILY 12/26/24 12/26/24 History
extended release
Review of Systems
-
All other systems: Negative unless noted
Physical Exam
Vital Signs
Vital Signs
Temp Pulse Resp BP Pulse Ox
97.5 F 69 28 119/49 95
12/25/24 23:19 12/26/24 09:00 12/26/24 09:00 12/26/24 04:37 12/26/24 05:45
Lab Results
WBC 7.9 10^3/uL (4.8-10.8) 12/26/24 05:56
RBC 4.25 10^6/uL (4.20-5.40) 12/26/24 05:56
Hgb 12.6 g/dL (12.0-16.0) 12/26/24 05:56
Hct 37.8 % (37.0-47.0) 12/26/24 05:56
Plt Count 242 10^3/uL (130-400) 12/26/24 05:56
Sodium 134 mmol/L (135-145) L 12/26/24 05:56
Potassium 4.8 mmol/L (3.5-5.1) 12/26/24 05:56
Chloride 106 mmol/L (98-107) 12/26/24 05:56
Carbon Dioxide 20 mmol/L (22-30) L 12/26/24 05:56
BUN 39 mg/dl (7-17) H 12/26/24 05:56
Creatinine 1.7 mg/dL (0.6-1.0) H 12/26/24 05:56
eGFR 28.84 12/26/24 05:56
Glucose 142 mg/dl (70-99) H 12/26/24 05:56
Calcium 9.3 mg/dl (8.4-10.2) 12/26/24 05:56
Albumin 4.7 g/dl (3.5-5.0) 12/26/24 00:54
Physical Exam
General: Awake, Alert, Oriented, AOx3, No Distress and Nontoxic
HEENT: EOMI, Anicteric, Conjunctivae Clear and Facial Symmetry
Respiratory: Normal Excursion, Nonlabored Respirations and Other (coarse bs)
Cardiac: S1/S2 and Regular Rate/Rhythm
Breast: Deferred by me
Abdomen: Soft, Nontender and Nondistended
Musculoskeletal: No Cyanosis and No Edema
Skin: No Rash
Neuro: Nonfocal/Grossly Intact
Psych: Mood/afflect pleasant, Insight/judgement good and Appropriate
Data Reviewed
-
Labs: Labs Reviewed by me and Discussed with Patient
Assessment/Plan
-
IMP:
Small bowel obstruction - h/o bowel resection
ADELA , ckd3-baseline cr 1-1.1(05/2024 in [facility])
Urinary tract symptoms - mostly hematuria
no gap mild met acidosis
Atrial fibrillation
Emphysema
Elevated LFTs
Nephrolithiasis-calcium based, last flare 2019
mild hyperkalemia-resolved
mild hyponatremia
Plan:
A/w Abd symp and UTI
ADELA-suspect prerenal and also bactrim use
UA with pyuria, +bld but no RBC, 2+alb
U acid crystals in urine-will need repeat urine labs later
known h/o atrophic right kidney and has functioning solitary left kidney
Await CT abd results, likely no hydro
would cont isotonic IVF for now as cr seem to improving
check bladder scan and monitor UOP
abx per primary, await U cx
sug follows for distal SBO, NPO with NGT
BP are stable
avoid nephrotoxins
d/w pt
--- NOTE | 2024-12-26 15:17 | W.PN.UPDATE ---
Update Note
Progress Note Update
Patient admitted 430 AM
Saw in ER, NGT in place, reports abdominal distention already improved, feels less pain
No fever/chills
Assessment:
Distal SBO likely secondary to adhesions (hx of prior bowel resection)
- CT: Small bowel obstruction with transition mid abdomen, suspicious for adhesion. No pneumatosis. No perforation. Moderate distention of the stomach
- GS evaluating; continuing with conservative management
- NGT
- NPO/IVF
ADELA on CKD stage 3b (baseline 1.1 to 1.3)
acute hyperkalemia - resolved
functioning solitary left kidney
- etiology suspected pre-renal in setting of SBO, recent Bactrim use for UTI
- Cr 1.9 on admission; now 1.7
- continue IVF
- SC/BS protocol
- Nephrology following
Acute UTI
- recently on Bactrim outpatient
- continue Rocephin day 1; pending Urine Cx
Parox Atrial fibrillation
- continue BB
- hold Xarelto; start IV heparin drip
CAD
Essential HTN
- holding PO BP meds
GERD
Hypothyroidism
Depression
Hx of PE
- hold Xarelto; start IV heparin drip
DVT ppx: IV Heparin
Code: DNR/DNI
[2024-12-26 16:28] LABS: APTT 27.7 Sec (23.4-35.0)
[2024-12-26] MEDS: HEPARIN 25000 UNITS/250 ML IV (17:17)
[2024-12-26] MEDS: NORVASC 5 MG PO (17:35)
[2024-12-26] MEDS: PACERONE 200 MG PO (17:36)
[2024-12-26] MEDS: TOPROL XL 25 MG PO (17:36)
[2024-12-26] MEDS: PEPCID 20 MG IV (20:59)
[2024-12-26] MEDS: NSS (PRESERVATIVE FREE) 8 ML IV (21:00)
[2024-12-26 23:49] LABS: APTT 45.9 Sec (23.4-35.0)
[2024-12-27] VITALS (8 sets, daily range): BP systolic 133–152; BP diastolic 58–68; PULSE 58–59; O2SAT 94; BMI 28.5
[2024-12-27] MEDS: STERILE WATER FOR INJECTION 10 ML IV (06:00)
[2024-12-27] MEDS: ROCEPHIN 1000 MG IV (06:00)
[2024-12-27] MEDS: D5/0.9% SODIUM CHLORIDE 1000 IV ×2 (06:22→15:43)
[2024-12-27 07:34] LABS: Hematocrit 38.4 % (37.0-47.0); Hemoglobin 12.2 g/dL (12.0-16.0); Mean Corp Hgb Conc. 31.8 g/dL (33.0-37.0); Mean Corpuscular Volume 92.1 fL (81.0-99.0); Platelet Count 223 10^3/uL (130-400); Red Cell Dist. Width 13.8 % (11.5-14.5)
[2024-12-27] MEDS: SYMBICORT 160/4.5 MCG INHALER 2 PUFF INH ×2 (07:43→19:28)
[2024-12-27] MEDS: SPIRIVA RESPIMAT 2.5 MCG 2 PUFF INH (07:43)
[2024-12-27 07:49] LABS: APTT 50.4 Sec (23.4-35.0)
[2024-12-27 08:19] LABS: ALT (SGPT) 124 U/L (0-35); AST (SGOT) 88 U/L (14-36); Albumin 3.5 g/dl (3.5-5.0); Alkaline Phosphatase 59 U/L (38-126); Blood Urea Nitrogen 26 mg/dl (7-17); Calcium 8.7 mg/dl (8.4-10.2); Carbon Dioxide 23 mmol/L (22-30); Chloride 112 mmol/L (98-107); Estimated Creatinine Clearance 34 ml/min; Glucose 88 mg/dl (70-99); Potassium 4.9 mmol/L (3.5-5.1); Sodium 139 mmol/L (135-145); Total Protein 6.2 g/dl (6.3-8.2); eGFR 43.81
--- NOTE | 2024-12-27 12:09 | W.PN.GS2 ---
Today's Communication / Plan
-
NGT/NPO
Assessment / Plan
-
89 yo F with a h/o colonic mass s/p open R partial colectomy, A-fib (on Xarelto, LD 12/24) p/w SBO likely secondary to adhesions
AFVSS
No leukocytosis
ADELA present on admission, Cr improving with IVF
Symptomatic improvement with NGT decompression
Not yet passing flatus/stools
Plan:
Continue NGT decompression
NPO with ice chips for comfort
I&O's
Continue IVF
Analgesics/antiemetics
Medical management as per primary team
Will follow for continued improvement with nonoperative measures
Subjective Data
-
Date of Service: December 27, 2024
Pt seen and examined at bedside with Dr. Azar. Denies n/v. OOB to chair. Feels like some gurgling in her abdomen. Denies passage of flatus or bms.
Objective Data
-
Intake and Output
12/26/24 12/27/24 12/28/24
06:59 06:59 06:59
Intake Total 600 / 600
Balance 600 / 600
Intake:
Oral fluids 0 / 0
IV fluids (Total) 600 / 600
Other:
How many times incontinent 1
MODERATE amount urine
Number of approximated MODERATE 1
amounts of urine
Vital Signs
Temp Pulse Resp BP Pulse Ox
97.4 F 60 16 136/62 94
12/27/24 07:00 12/27/24 07:44 12/27/24 07:44 12/27/24 07:00 12/27/24 07:44
Lab Results
12/27/24 06:26
12/27/24 06:26
Calcium 8.7 mg/dl (8.4-10.2) 12/27/24 06:26
Magnesium 1.9 mg/dl (1.6-2.3) 12/26/24 05:56
Total Bilirubin 0.6 mg/dl (0.2-1.3) 12/27/24 06:26
AST 88 U/L (14-36) H 12/27/24 06:26
ALT 124 U/L (0-35) H 12/27/24 06:26
Alkaline Phosphatase 59 U/L (38-126) 12/27/24 06:26
Total Protein 6.2 g/dl (6.3-8.2) L D 12/27/24 06:26
Albumin 3.5 g/dl (3.5-5.0) 12/27/24 06:26
Physical Exam
-
NAD
ABD softly distended, nt, no rebound/guarding, NGT with light bilious outputs
--- NOTE | 2024-12-27 12:29 | W.PN.NEPH.PH ---
Today's Communication / Plan
-
IVF
Assessment/Plan
-
IMP:
Small bowel obstruction - h/o bowel resection
ADELA , ckd3-baseline cr 1-1.1(05/2024 in [facility])
Urinary tract symptoms - mostly hematuria
no gap mild met acidosis
Atrial fibrillation
Emphysema
Elevated LFTs
Nephrolithiasis-calcium based, last flare 2019
mild hyperkalemia-resolved
mild hyponatremia
Plan:
follow BMP
continue IVF while NPO
no lasix
-
-
Date of Service: December 27, 2024
CC / HPI / ROS
-
Chief Complaint:
ADELA
History of Present Illness:
ADELA/Cr down to 1.[address]
no abdominal pain
BPs stable
K normal
Review of Systems:
no CP/SOB
Labs
-
Labs:
WBC 6.7 10^3/uL (4.8-10.8) 12/27/24 06:26
RBC 4.17 10^6/uL (4.20-5.40) L 12/27/24 06:26
Hgb 12.2 g/dL (12.0-16.0) 12/27/24 06:26
Hct 38.4 % (37.0-47.0) 12/27/24 06:26
Plt Count 223 10^3/uL (130-400) 12/27/24 06:26
Sodium 139 mmol/L (135-145) 12/27/24 06:26
Potassium 4.9 mmol/L (3.5-5.1) 12/27/24 06:26
Chloride 112 mmol/L (98-107) H 12/27/24 06:26
Carbon Dioxide 23 mmol/L (22-30) 12/27/24 06:26
BUN 26 mg/dl (7-17) H 12/27/24 06:26
Creatinine 1.2 mg/dL (0.6-1.0) H 12/27/24 06:26
eGFR 43.81 12/27/24 06:26
Glucose 88 mg/dl (70-99) 12/27/24 06:26
Calcium 8.7 mg/dl (8.4-10.2) 12/27/24 06:26
Albumin 3.5 g/dl (3.5-5.0) 12/27/24 06:26
Physical Exam
-
Vital Signs:
Vital Signs
Temp Pulse Resp BP Pulse Ox
97.4 F 60 16 143/59 94
12/27/24 11:00 12/27/24 11:00 12/27/24 11:00 12/27/24 11:00 12/27/24 11:00
Cardiovascular:: Regular rate and rhythm
Lung Excursion:: Normal
Abdomen:: Nontender and Soft
Bowel Sounds:: Normal
Extremity Edema:: None: Bilateral:
[2024-12-27] MEDS: HEPARIN 25000 UNITS/250 ML IV (13:24)
--- NOTE | 2024-12-27 13:32 | W.PN.HOSP.TC ---
Today's Communication/Plan
-
Await evidence of bowel function, continue NGT/NPO/IVF for now
Assessment / Plan
Assessment / Plan
Assessment:
Distal SBO likely secondary to adhesions (hx of prior bowel resection)
- CT: Small bowel obstruction with transition mid abdomen, suspicious for adhesion. No pneumatosis. No perforation. Moderate distention of the stomach
- GS evaluating; continuing with conservative management
- NGT continues
- NPO/IVF
ADELA on CKD stage 3b (baseline 1.1 to 1.3)
acute hyperkalemia - resolved
functioning solitary left kidney
- etiology suspected pre-renal in setting of SBO, recent Bactrim use for UTI
- Cr 1.9 on admission; now 1.2
- continue IVF
- SC/BS protocol
- Nephrology following
Acute UTI
- recently on Bactrim outpatient
- continue Rocephin day 2; pending Urine Cx
Parox Atrial fibrillation
- continue BB
- hold Xarelto; continue IV heparin drip - requires intensive monitoring of PTTs
CAD
Essential HTN
- holding PO BP meds
GERD
Hypothyroidism
Depression
Hx of PE
- hold Xarelto; continue IV heparin drip - requires intensive monitoring of PTTs
DVT ppx: IV Heparin
Code: DNR/DNI
Anticipated Discharge: > 48 hours
Subjective/Interval History
-
Date of Service: December 27, 2024
no n/v. no flatus or Bm yet
no fever/chills
NGT in place
Objective Data
-
Labs:
Laboratory Results
12/27/24 12/27/24
06:26 14:45
WBC 6.7
Hgb 12.2
Hct 38.4
Plt Count 223
APTT 50.4 H Pending
Sodium 139
Potassium 4.9
Chloride 112 H
Carbon Dioxide 23
BUN 26 H
Creatinine 1.2 H
Glucose 88
Calcium 8.7
Total Bilirubin 0.6
AST 88 H
ALT 124 H
Alkaline Phosphatase 59
Vital Signs:
Vital Signs
Temp Pulse Resp BP Pulse Ox
97.4 F 60 16 143/59 94
12/27/24 11:00 12/27/24 11:00 12/27/24 11:00 12/27/24 11:00 12/27/24 11:00
I&O
12/26/24 12/27/24 12/28/24
06:59 06:59 06:59
Intake Total 600 / 600
Balance 600 / 600
Physical Exam
-
General: No Apparent Distress
HEENT: Normocephalic, Atraumatic and Other (+NGT tube)
Respiratory: Negative Wheezes
Cardiac: Regular Rhythm and S1/S2
GI: Nontender and Distended (slightly)
Genito-urinary: No Costovertebral Tender
Neuro: AO x 3
Psych: Calm
Data Reviewed
-
Total Time Spent with Patient (in minutes): 42
Labs: Labs Reviewed by me
[2024-12-27 14:40] LABS: APTT 113.7 Sec (23.4-35.0)
[2024-12-27] MEDS: NORVASC 5 MG PO (16:54)
[2024-12-27] MEDS: NORVASC PO (16:54)
[2024-12-27] MEDS: TOPROL XL 25 MG PO (16:55)
[2024-12-27] MEDS: PACERONE 200 MG PO (16:55)
[2024-12-27] MEDS: PEPCID 20 MG IV (20:20)
[2024-12-27] MEDS: NSS (PRESERVATIVE FREE) 8 ML IV (20:20)
[2024-12-27 21:44] LABS: APTT 78.4 Sec (23.4-35.0)
[2024-12-28] MEDS: D5/0.9% SODIUM CHLORIDE 1000 IV ×2 (01:13→11:18)
[2024-12-28 03:52] VITALS: BP 127/61
[2024-12-28] MEDS: ROCEPHIN 1000 MG IV (04:57)
[2024-12-28] MEDS: STERILE WATER FOR INJECTION 10 ML IV (04:57)
[2024-12-28 04:59] LABS: APTT 111.5 Sec (23.4-35.0)
[2024-12-28 05:02] LABS: Hematocrit 35.1 % (37.0-47.0); Hemoglobin 11.4 g/dL (12.0-16.0); Mean Corp Hgb Conc. 32.5 g/dL (33.0-37.0); Mean Corpuscular Volume 91.2 fL (81.0-99.0); Platelet Count 205 10^3/uL (130-400); Red Cell Dist. Width 13.8 % (11.5-14.5)
[2024-12-28 05:18] LABS: ALT (SGPT) 98 U/L (0-35); AST (SGOT) 55 U/L (14-36); Albumin 3.3 g/dl (3.5-5.0); Alkaline Phosphatase 49 U/L (38-126); Blood Urea Nitrogen 18 mg/dl (7-17); Calcium 8.8 mg/dl (8.4-10.2); Carbon Dioxide 22 mmol/L (22-30); Chloride 114 mmol/L (98-107); Estimated Creatinine Clearance 45 ml/min; Glucose 116 mg/dl (70-99); Potassium 4.3 mmol/L (3.5-5.1); Sodium 140 mmol/L (135-145); Total Protein 6.1 g/dl (6.3-8.2); eGFR > 60.00
[2024-12-28 06:00] VITALS: BMI 29.0
[2024-12-28 07:00] VITALS: BP 147/62
[2024-12-28] MEDS: SPIRIVA RESPIMAT 2.5 MCG 2 PUFF INH (07:56)
[2024-12-28] MEDS: SYMBICORT 160/4.5 MCG INHALER 2 PUFF INH ×2 (07:56→19:41)
[2024-12-28] MEDS: HEPARIN 25000 UNITS/250 ML IV (09:49)
[2024-12-28 11:00] VITALS: BP 137/61
--- NOTE | 2024-12-28 11:18 | W.PN.HOSP.TC ---
Today's Communication/Plan
-
possible NG clamp
diet per GS
stop Rocephin, 3 day treatment completed
PT/OT
Assessment / Plan
Assessment / Plan
Assessment:
Distal SBO likely secondary to adhesions (hx of prior bowel resection)
- CT: Small bowel obstruction with transition mid abdomen, suspicious for adhesion. No pneumatosis. No perforation. Moderate distention of the stomach
- GS evaluating; continuing with conservative management
- NGT continues; possible clamp trial today
- NPO/IVF
ADELA on CKD stage 3b (baseline 1.1 to 1.3)
acute hyperkalemia - resolved
functioning solitary left kidney
- etiology suspected pre-renal in setting of SBO, recent Bactrim use for UTI
- Cr 1.9 on admission; now 1.2
- continue IVF
- SC/BS protocol
- Nephrology following
Acute UTI
- recently on Bactrim outpatient
- Urine culture with strep species
- s/p 3 days Rocephin therapy
Elevated LFTs suspect reactive to SBO
- improving
Parox Atrial fibrillation
- continue BB
- hold Xarelto; continue IV heparin drip - requires intensive monitoring of PTTs
CAD
Essential HTN
- holding PO BP meds
GERD
Hypothyroidism
Depression
Hx of PE
- hold Xarelto; continue IV heparin drip - requires intensive monitoring of PTTs
DVT ppx: IV Heparin
Code: DNR/DNI
Anticipated Discharge: > 48 hours
Subjective/Interval History
-
Date of Service: December 28, 2024
+ flatus, BM yesterday
NG with minimal outputs
she feels distention improving
Objective Data
-
Labs:
Laboratory Results
12/28/24 12/28/24
04:39 10:48
WBC 6.5
Hgb 11.4 L
Hct 35.1 L
Plt Count 205
APTT 111.5 H Pending
Sodium 140
Potassium 4.3
Chloride 114 H
Carbon Dioxide 22
BUN 18 H
Creatinine 0.9
Glucose 116 H
Calcium 8.8
Total Bilirubin 0.7
AST 55 H
ALT 98 H
Alkaline Phosphatase 49
Vital Signs:
Vital Signs
Temp Pulse Resp BP Pulse Ox
98.0 F 78 16 147/62 95
12/28/24 07:00 12/28/24 08:50 12/28/24 08:50 12/28/24 07:00 12/28/24 08:50
I&O
12/27/24 12/28/24 12/29/24
06:59 06:59 06:59
Intake Total 600 / 600 1494 / 1494
Output Total 125 / 125
Balance 600 / 600 1369 / 1369
Physical Exam
-
General: No Apparent Distress
HEENT: Normocephalic, Atraumatic and Other (+ NG Tube)
Respiratory: Negative Wheezes
Cardiac: Regular Rhythm and S1/S2
GI: Soft and Nontender
Genito-urinary: No Costovertebral Tender
Musculoskeletal: No Edema
Neuro: AO x 3
Psych: Calm
Data Reviewed
-
Total Time Spent with Patient (in minutes): 42
Labs: Labs Reviewed by me
[2024-12-28 11:20] LABS: APTT 118.5 Sec (23.4-35.0)
--- NOTE | 2024-12-28 13:02 | W.PN.GS2 ---
Today's Communication / Plan
-
dc ngt, trial of clears
Assessment / Plan
-
89 yo F with a h/o colonic mass s/p open R partial colectomy, A-fib (on Xarelto, LD 12/24) p/w SBO likely secondary to adhesions
AFVSS
No leukocytosis
H/H stable on heparin gtt
ADELA present on admission, resolved with IVF
Symptomatic improvement with NGT decompression
Now passing stools/flatus
Plan:
D/C NGT
Trial of clear liquids
Ok to d/c IVF once tolerating PO
Analgesics/antiemetics
Medical management as per primary team
Will follow for continued improvement with nonoperative measures. Case discussed with hospitalist during rounds
Subjective Data
-
Date of Service: December 28, 2024
Pt seen and examined at bedside with Dr Azar. Denies n/v. Passed a form BM last night then several loose bm's since. Passing flatus. Denies pain.
Objective Data
-
Intake and Output
12/27/24 12/28/24 12/29/24
06:59 06:59 06:59
Intake Total 600 / 600 1494 / 1494
Output Total 125 / 125
Balance 600 / 600 1369 / 1369
Intake:
Oral fluids 0 / 0
IV fluids (Total) 600 / 600 1200 / 1200
IV piggybacks 144 / 144
Amount instilled into GI Tube ( 150 / 150
Total)
[place]odge Sump 150 / 150
Output:
Gastrointestinal tube output ( 125 / 125
Total)
[place] Sump 125 / 125
Other:
How many times incontinent 1
MODERATE amount urine
How many times incontinent 1
SATURATED amount urine
Number of approximated MODERATE 1 2
amounts of urine
Vital Signs
Temp Pulse Resp BP Pulse Ox
97.7 F 52 18 137/61 96
12/28/24 11:00 12/28/24 11:00 12/28/24 11:00 12/28/24 11:00 12/28/24 11:00
Lab Results
12/28/24 04:39
12/28/24 04:39
Calcium 8.8 mg/dl (8.4-10.2) 12/28/24 04:39
Magnesium 1.9 mg/dl (1.6-2.3) 12/26/24 05:56
Total Bilirubin 0.7 mg/dl (0.2-1.3) 12/28/24 04:39
AST 55 U/L (14-36) H 12/28/24 04:39
ALT 98 U/L (0-35) H 12/28/24 04:39
Alkaline Phosphatase 49 U/L (38-126) 12/28/24 04:39
Total Protein 6.1 g/dl (6.3-8.2) L 12/28/24 04:39
Albumin 3.3 g/dl (3.5-5.0) L 12/28/24 04:39
Physical Exam
-
NAD
ABD soft, nd, nt, no rebound/guarding, NGT with minimal outputs
[2024-12-28 13:10] VITALS: BMI 29.0
--- NOTE | 2024-12-28 14:01 | W.PN.NEPH.PH ---
Today's Communication / Plan
-
dc IVF
Assessment/Plan
-
IMP:
Small bowel obstruction - h/o bowel resection
ADELA , ckd3-baseline cr 1-1.1(05/2024 in [facility])
Urinary tract symptoms - mostly hematuria
no gap mild met acidosis
Atrial fibrillation
Emphysema
Elevated LFTs
Nephrolithiasis-calcium based, last flare 2019
mild hyperkalemia-resolved
mild hyponatremia
Plan:
follow BMP
cap IVF
no lasix
will sign off
-
-
Date of Service: December 28, 2024
CC / HPI / ROS
-
Chief Complaint:
ADELA
History of Present Illness:
ADELA/Cr down to 0.9
NGT out, clears
no abdominal pain
BPs stable
K normal
Review of Systems:
no CP/SOB
Labs
-
Labs:
WBC 6.5 10^3/uL (4.8-10.8) 12/28/24 04:39
RBC 3.85 10^6/uL (4.20-5.40) L 12/28/24 04:39
Hgb 11.4 g/dL (12.0-16.0) L 12/28/24 04:39
Hct 35.1 % (37.0-47.0) L 12/28/24 04:39
Plt Count 205 10^3/uL (130-400) 12/28/24 04:39
Sodium 140 mmol/L (135-145) 12/28/24 04:39
Potassium 4.3 mmol/L (3.5-5.1) 12/28/24 04:39
Chloride 114 mmol/L (98-107) H 12/28/24 04:39
Carbon Dioxide 22 mmol/L (22-30) 12/28/24 04:39
BUN 18 mg/dl (7-17) H 12/28/24 04:39
Creatinine 0.9 mg/dL (0.6-1.0) 12/28/24 04:39
eGFR > 60.00 12/28/24 04:39
Glucose 116 mg/dl (70-99) H 12/28/24 04:39
Calcium 8.8 mg/dl (8.4-10.2) 12/28/24 04:39
Albumin 3.3 g/dl (3.5-5.0) L 12/28/24 04:39
Physical Exam
-
Vital Signs:
Vital Signs
Temp Pulse Resp BP Pulse Ox
97.7 F 52 18 137/61 96
12/28/24 11:00 12/28/24 11:00 12/28/24 11:00 12/28/24 11:00 12/28/24 11:00
Cardiovascular:: Regular rate and rhythm
Respiratory:: Bilateral: Coarse
Lung Excursion:: Normal
Abdomen:: Nontender and Soft
Bowel Sounds:: Normal
Extremity Edema:: None: Bilateral:
[2024-12-28 15:00] VITALS: BP 113/51
[2024-12-28] MEDS: PACERONE 200 MG PO (15:49)
[2024-12-28] MEDS: TOPROL XL 25 MG PO (15:51)
[2024-12-28] MEDS: NORVASC 5 MG PO (15:56)
[2024-12-28 18:02] LABS: APTT 72.2 Sec (23.4-35.0)
--- NOTE | 2024-12-28 18:30 | PTCARENOTE ---
Pt did state at lunch he had a sandwich but has been experiencing some trouble writing earlier in the day.
[2024-12-28 19:44] VITALS: BP 149/58
[2024-12-28] MEDS: PEPCID IV (22:12)
[2024-12-28] MEDS: NSS (PRESERVATIVE FREE) IV (22:14)
[2024-12-28 23:04] VITALS: BP 153/65
[2024-12-29] VITALS (7 sets, daily range): BP systolic 126–162; BP diastolic 53–77; PULSE 72; BMI 28.5
[2024-12-29] MEDS: PEPCID 20 MG IV ×2 (00:16→21:21)
[2024-12-29] MEDS: NSS (PRESERVATIVE FREE) 8 ML IV ×2 (00:16→21:21)
[2024-12-29 00:26] LABS: APTT 74.4 Sec (23.4-35.0)
[2024-12-29 06:55] LABS: Hematocrit 37.0 % (37.0-47.0); Hemoglobin 12.4 g/dL (12.0-16.0); Mean Corp Hgb Conc. 33.5 g/dL (33.0-37.0); Mean Corpuscular Volume 91.8 fL (81.0-99.0); Platelet Count 207 10^3/uL (130-400); Red Cell Dist. Width 13.3 % (11.5-14.5)
[2024-12-29] MEDS: HEPARIN 25000 UNITS/250 ML IV (07:12)
[2024-12-29 07:14] LABS: APTT 93.8 Sec (23.4-35.0)
[2024-12-29 07:22] LABS: ALT (SGPT) 73 U/L (0-35); AST (SGOT) 32 U/L (14-36); Albumin 3.5 g/dl (3.5-5.0); Alkaline Phosphatase 64 U/L (38-126); Blood Urea Nitrogen 11 mg/dl (7-17); Calcium 8.9 mg/dl (8.4-10.2); Carbon Dioxide 23 mmol/L (22-30); Chloride 110 mmol/L (98-107); Estimated Creatinine Clearance 45 ml/min; Glucose 89 mg/dl (70-99); Potassium 3.9 mmol/L (3.5-5.1); Sodium 138 mmol/L (135-145); Total Protein 6.3 g/dl (6.3-8.2); eGFR > 60.00
[2024-12-29] MEDS: SYMBICORT 160/4.5 MCG INHALER 2 PUFF INH ×2 (08:24→19:21)
[2024-12-29] MEDS: SPIRIVA RESPIMAT 2.5 MCG 2 PUFF INH (08:25)
--- NOTE | 2024-12-29 12:04 | W.PN.GS2 ---
Addendum entered and electronically signed by Jovi De Paz MD 12/29/24 19:21:
I saw and examined the patient independently.
The Wood Bucker's note was reviewed and I agree with the note, assessment and plan except where noted below.
Comment: 89-year-old female with small bowel obstruction, resolving slowly.
Advance to full liquid diet
Original Note:
Today's Communication / Plan
-
Full liquids
Assessment / Plan
-
89 yo F with a h/o colonic mass s/p open R partial colectomy, A-fib (on Xarelto, LD 12/24) p/w SBO likely secondary to adhesions
AFVSS
No leukocytosis
H/H stable on heparin gtt
ADELA present on admission, resolved with IVF
Clinically improving/resolving SBO
Plan:
Advance to FLD
Analgesics/antiemetics
Medical management as per primary team
Will follow for continued improvement with nonoperative measures.
Subjective Data
-
Date of Service: December 29, 2024
Pt seen and examined at bedside with Dr. De Paz. Denies n/v. Tolerating clears. Passing flatus and some loose stool. Denies pain. Not sure if she is ready for solids.
Objective Data
-
Intake and Output
12/28/24 12/29/24 12/30/24
06:59 06:59 06:59
Intake Total 1494 / 1494 388 / 388
Output Total 125 / 125
Balance 1369 / 1369 388 / 388
Intake:
Oral fluids 250 / 250
IV fluids (Total) 1200 / 1200
IV piggybacks 144 / 144 138 / 138
Amount instilled into GI Tube ( 150 / 150
Total)
[place] Sump 150 / 150
Output:
Gastrointestinal tube output ( 125 / 125
Total)
[place] Sump 125 / 125
Other:
How many times incontinent 1
SATURATED amount urine
Number of approximated MODERATE 2 5
amounts of urine
Vital Signs
Temp Pulse Resp BP Pulse Ox
98.1 F 54 16 133/56 98
12/29/24 11:45 12/29/24 11:45 12/29/24 11:45 12/29/24 11:45 12/29/24 11:45
Lab Results
12/29/24 06:37
12/29/24 06:37
Calcium 8.9 mg/dl (8.4-10.2) 12/29/24 06:37
Magnesium 1.9 mg/dl (1.6-2.3) 12/26/24 05:56
Total Bilirubin 1.0 mg/dl (0.2-1.3) 12/29/24 06:37
AST 32 U/L (14-36) 12/29/24 06:37
ALT 73 U/L (0-35) H 12/29/24 06:37
Alkaline Phosphatase 64 U/L (38-126) 12/29/24 06:37
Total Protein 6.3 g/dl (6.3-8.2) 12/29/24 06:37
Albumin 3.5 g/dl (3.5-5.0) 12/29/24 06:37
Physical Exam
-
NAD
ABD soft, nd, nt, no rebound/guarding
--- NOTE | 2024-12-29 14:44 | W.PN.HOSP.TC ---
Today's Communication/Plan
-
Patient appears to be improving, diet has been advanced
Assessment / Plan
Assessment / Plan
89F w/ CAD, HTN, CKD history of bowel resection, presenting with SBO.
Distal SBO
likely secondary to adhesions (hx of prior bowel resection)
- CT: Small bowel obstruction with transition mid abdomen, suspicious for adhesion. No pneumatosis. No perforation. Moderate distention of the stomach
- GS treating with conservative management
- NGT removed, diet advanced to FLD
ADELA on CKD�resolved
stage 3b (baseline 1.1 to 1.3)
acute hyperkalemia - resolved
functioning solitary left kidney
- etiology suspected pre-renal in setting of SBO, recent Bactrim use for UTI
- Cr 1.9 on admission; resolved to 0.9
- continue IVF
- SC/BS protocol
- Nephrology following
Acute UTI
- recently on Bactrim outpatient
- Urine culture with strep species
- s/p 3 days Rocephin therapy
Elevated LFTs suspect reactive to SBO
- improving
Parox Atrial fibrillation
- continue BB
- hold Xarelto; continue IV heparin drip - requires intensive monitoring of PTTs, will transition back to Xarelto on discharge
CAD
Essential HTN
- holding PO BP meds
GERD
Hypothyroidism
Depression
Hx of PE
- hold Xarelto; continue IV heparin drip - requires intensive monitoring of PTTs
DVT ppx: IV Heparin
Code: DNR/DNI
Anticipated Discharge: 24 - 48 hours
Subjective/Interval History
-
Date of Service: December 29, 2024
Patient reports she is feeling much better after the NG tube is out
Denies vomiting, denies pain
Notes having small bowel movements that are hard
Objective Data
-
Labs:
Laboratory Results
12/29/24
06:37
WBC 6.7
Hgb 12.4
Hct 37.0
Plt Count 207
APTT 93.8 H
Sodium 138
Potassium 3.9
Chloride 110 H
Carbon Dioxide 23
BUN 11
Creatinine 0.9
Glucose 89
Calcium 8.9
Total Bilirubin 1.0
AST 32
ALT 73 H
Alkaline Phosphatase 64
Vital Signs:
Vital Signs
Temp Pulse Resp BP Pulse Ox
98.1 F 54 16 133/56 98
12/29/24 11:45 12/29/24 11:45 12/29/24 11:45 12/29/24 11:45 12/29/24 11:45
I&O
12/28/24 12/29/24 12/30/24
06:59 06:59 06:59
Intake Total 1494 / 1494 388 / 388
Output Total 125 / 125
Balance 1369 / 1369 388 / 388
Review of Systems
-
All other systems: Reviewed and negative
Physical Exam
-
General: No Apparent Distress
HEENT: Moist Mucous Membranes, Anicteric and PERRLA
Respiratory: Clear to Auscultation; Negative Wheezes, Rales or Rhonchi
Cardiac: Regular Rhythm and S1/S2; Negative Murmur, Rub or Gallop
GI: Soft, Nontender, Nondistended and Normal Bowel Sounds
Musculoskeletal: No Edema
Skin: Warm and Dry; Negative Rash, Ulcers or Lesions
Neuro: Awake and AO x 3
Hematologic / Lymphatic: No Lymphadenopathy
Psych: Calm
Data Reviewed
-
Labs: Labs Reviewed by me and Discussed with Patient
--- NOTE | 2024-12-29 16:30 | CM ---
manager validation reviewed patient's chart and met with patient and patient states she lives with spouse in a 2 story home, one step to enter, patient is independent with adl's and uses a cane or walker with ambulation, plan is to home when stable.
PCP: Dr. Ghotra
Pharmacy [facility]
[2024-12-29] MEDS: TOPROL XL PO (17:20)
[2024-12-29] MEDS: NORVASC 5 MG PO (17:25)
[2024-12-29] MEDS: PACERONE 200 MG PO (17:25)
[2024-12-30 03:11] VITALS: BP 95/61
[2024-12-30] MEDS: HEPARIN 25000 UNITS/250 ML IV (05:23)
[2024-12-30 06:00] VITALS: BMI 28.5
[2024-12-30 07:23] LABS: Hematocrit 35.3 % (37.0-47.0); Hemoglobin 11.2 g/dL (12.0-16.0); Mean Corp Hgb Conc. 31.7 g/dL (33.0-37.0); Mean Corpuscular Volume 92.9 fL (81.0-99.0); Platelet Count 214 10^3/uL (130-400); Red Cell Dist. Width 13.6 % (11.5-14.5)
[2024-12-30 07:32] LABS: APTT 94.4 Sec (23.4-35.0)
[2024-12-30 07:52] LABS: Blood Urea Nitrogen 12 mg/dl (7-17); Calcium 8.8 mg/dl (8.4-10.2); Carbon Dioxide 24 mmol/L (22-30); Chloride 110 mmol/L (98-107); Estimated Creatinine Clearance 45 ml/min; Glucose 96 mg/dl (70-99); Potassium 3.9 mmol/L (3.5-5.1); Sodium 137 mmol/L (135-145); eGFR > 60.00
[2024-12-30] MEDS: SPIRIVA RESPIMAT 2.5 MCG 2 PUFF INH (07:53)
[2024-12-30] MEDS: SYMBICORT 160/4.5 MCG INHALER 2 PUFF INH ×2 (07:54→19:28)
[2024-12-30 08:24] VITALS: BP 134/65
--- NOTE | 2024-12-30 09:42 | W.PN.GS2 ---
Today's Communication / Plan
-
-- LRD
-- OK to resume PO anticoagulation
-- DC pending dietary tolerance and other medical issues (later today versus tomorrow)
Assessment / Plan
-
89 yo F with a h/o colonic mass s/p open R partial colectomy, A-fib (on Xarelto, LD 12/24) p/w SBO likely secondary to adhesions
AFVSS
No leukocytosis
H/H stable on heparin gtt
ADELA present on admission, resolved with IVF
Clinically improving/resolving SBO
Plan:
-- LRD
-- OK to resume PO anticoagulation
-- DC pending dietary tolerance and other medical issues (later today versus tomorrow)
Subjective Data
-
Date of Service: December 30, 2024
No complaints. Tolerated fulls. No nausea or emesis. No worsening abdominal pain. Passing small flatus and loose BMs. No fevers.
Objective Data
-
Intake and Output
12/29/24 12/30/24 12/31/24
06:59 06:59 06:59
Intake Total 388 / 388 1200 / 1200
Balance 388 / 388 1200 / 1200
Intake:
Oral fluids 250 / 250 1200 / 1200
IV piggybacks 138 / 138
Other:
How many times incontinent 4
SATURATED amount urine
Number of approximated MODERATE 5
amounts of urine
Number of approximated LARGE 3
amounts of urine
Vital Signs
Temp Pulse Resp BP Pulse Ox
98.1 F 56 16 134/65 95
12/30/24 08:24 12/30/24 08:24 12/30/24 08:24 12/30/24 08:24 12/30/24 08:24
Lab Results
12/30/24 07:02
12/30/24 07:02
Calcium 8.8 mg/dl (8.4-10.2) 12/30/24 07:02
Magnesium 1.9 mg/dl (1.6-2.3) 12/26/24 05:56
Total Bilirubin 1.0 mg/dl (0.2-1.3) 12/29/24 06:37
AST 32 U/L (14-36) 12/29/24 06:37
ALT 73 U/L (0-35) H 12/29/24 06:37
Alkaline Phosphatase 64 U/L (38-126) 12/29/24 06:37
Total Protein 6.3 g/dl (6.3-8.2) 12/29/24 06:37
Albumin 3.5 g/dl (3.5-5.0) 12/29/24 06:37
Physical Exam
-
Gen: NAD
Abd: soft, NT, stable distension/obesity, non-peritoneal, prior incision well healed
Patient has a johnson catheter: No
Patient has a central line: No
[2024-12-30 11:00] VITALS: BP 132/55
--- NOTE | 2024-12-30 14:28 | W.PN.HOSP.TC ---
Today's Communication/Plan
-
Patient appears to be improving, diet has been advanced
Home tomorrow morning if doing well
Assessment / Plan
Assessment / Plan
89F w/ CAD, HTN, CKD history of bowel resection, presenting with SBO.
Distal SBO
likely secondary to adhesions (hx of prior bowel resection)
- CT: Small bowel obstruction with transition mid abdomen, suspicious for adhesion. No pneumatosis. No perforation. Moderate distention of the stomach
- GS treating with conservative management
- NGT removed, diet advanced to solids, low residue
ADELA on CKD�resolved
stage 3b (baseline 1.1 to 1.3)
acute hyperkalemia - resolved
functioning solitary left kidney
- etiology suspected pre-renal in setting of SBO, recent Bactrim use for UTI
- Cr 1.9 on admission; resolved to 0.9
- continue IVF
- SC/BS protocol
- Nephrology following
Acute UTI
- recently on Bactrim outpatient
- Urine culture with strep species
- s/p 3 days Rocephin therapy
Elevated LFTs suspect reactive to SBO
- improving
Parox Atrial fibrillation
- continue BB
-Currently on heparin drip, resume Xarelto tonight
CAD
Essential HTN
- holding PO BP meds
GERD
Hypothyroidism
Depression
Hx of PE
-Resume Xarelto tonight
DVT ppx: IV Heparin at the moment
Code: DNR/DNI
Anticipated Discharge: 24 - 48 hours
Subjective/Interval History
-
Date of Service: December 30, 2024
Objective Data
-
Labs:
Laboratory Results
12/30/24
07:02
WBC 6.0
Hgb 11.2 L
Hct 35.3 L
Plt Count 214
APTT 94.4 H
Sodium 137
Potassium 3.9
Chloride 110 H
Carbon Dioxide 24
BUN 12
Creatinine 0.9
Glucose 96
Calcium 8.8
Vital Signs:
Vital Signs
Temp Pulse Resp BP Pulse Ox
97.4 F 68 18 132/55 96
12/30/24 11:00 12/30/24 11:00 12/30/24 11:00 12/30/24 11:00 12/30/24 11:00
I&O
12/29/24 12/30/24 12/31/24
06:59 06:59 06:59
Intake Total 388 / 388 1200 / 1200
Balance 388 / 388 1200 / 1200
Review of Systems
-
All other systems: Reviewed and negative
Physical Exam
-
General: No Apparent Distress
HEENT: Moist Mucous Membranes, Anicteric and PERRLA
Respiratory: Clear to Auscultation; Negative Wheezes, Rales or Rhonchi
Cardiac: Regular Rhythm and S1/S2; Negative Murmur, Rub or Gallop
GI: Soft, Nontender, Nondistended and Normal Bowel Sounds
Musculoskeletal: No Edema
Skin: Warm and Dry; Negative Rash, Ulcers or Lesions
Neuro: Awake and AO x 3
Hematologic / Lymphatic: No Lymphadenopathy
Psych: Calm
Data Reviewed
-
Labs: Labs Reviewed by me and Discussed with Patient
[2024-12-30 14:41] VITALS: BP 151/69
--- NOTE | 2024-12-30 15:31 | CM ---
Patient was seem by physical therapy and patient is ambulating 100 feet x2 per patient she states she will be out of the house and driving when she return to home, and does not feel she needs visiting nurses, home no needs.
Plan: Home no needs.
[2024-12-30] MEDS: NORVASC 5 MG PO (17:03)
[2024-12-30] MEDS: TOPROL XL 25 MG PO (17:03)
[2024-12-30] MEDS: PACERONE 200 MG PO (17:03)
[2024-12-30] MEDS: XARELTO 15 MG PO (17:31)
[2024-12-30 19:56] VITALS: BP 151/69
[2024-12-30] MEDS: PEPCID 20 MG IV (22:10)
[2024-12-30] MEDS: NSS (PRESERVATIVE FREE) 8 ML IV (22:10)
[2024-12-30 23:20] VITALS: BP 144/59
[2024-12-31 03:14] VITALS: BP 152/61
[2024-12-31 06:00] VITALS: BMI 28.4
[2024-12-31 07:00] VITALS: BP 150/76
[2024-12-31 07:21] LABS: Hematocrit 36.2 % (37.0-47.0); Hemoglobin 11.5 g/dL (12.0-16.0); Mean Corp Hgb Conc. 31.8 g/dL (33.0-37.0); Mean Corpuscular Volume 92.8 fL (81.0-99.0); Platelet Count 232 10^3/uL (130-400); Red Cell Dist. Width 13.6 % (11.5-14.5)
[2024-12-31 07:37] LABS: Blood Urea Nitrogen 13 mg/dl (7-17); Calcium 8.7 mg/dl (8.4-10.2); Carbon Dioxide 27 mmol/L (22-30); Chloride 107 mmol/L (98-107); Estimated Creatinine Clearance 41 ml/min; Glucose 98 mg/dl (70-99); Potassium 4.2 mmol/L (3.5-5.1); Sodium 139 mmol/L (135-145); eGFR 54.53
[2024-12-31] MEDS: SYMBICORT 160/4.5 MCG INHALER 2 PUFF INH (07:44)
[2024-12-31] MEDS: SPIRIVA RESPIMAT 2.5 MCG 2 PUFF INH (07:44)
--- NOTE | 2024-12-31 11:13 | W.DCSUMMARY ---
Discharge Summary
Discharge Data
Date of Admission: 12/26/24
Date of Discharge: 12/31/24
Total time spent discharging patient (in min): 35
-
Pending Results: No
Hospital Course
Attending physician on day of discharge:
Tiarra Kearney MD
Admission diagnosis:
Distal SBO
Discharge diagnosis:
Distal SBO, resolved
Secondary diagnoses:
Acute UTI
Elevated LFTs
Paroxysmal A-fib
History of PE
CAD
HTN
ADELA on CKD
Consultations:
General Surgery
Nephrology
Procedures:
None
Hospital course:
89F w/ CAD, HTN, CKD history of bowel resection, presenting with SBO, suspected did secondary to adhesions. Patient was treated with NG tube, bowel rest, with improvement. Diet advanced successfully. Patient was on Xarelto as outpatient for
paroxysmal A-fib and history of PE, she was transition to heparin drip pending resolution of the SBO, and transition back to Xarelto prior to discharge. Also had ADELA which resolved with IV fluids. Patient had UTI which was treated with 3 days of
IV Rocephin, urine culture showed strep species.
Physical exam on discharge:
Gen: NAD
HEENT: PERRLA, EOMI, MMM, neck supple
Cards: RRR, no M/G/R
Resp: Lungs CTAB, no W/R/R
GI: soft, NT/ND/NABS
MSK: No edema
Skin: warm and dry, no rash, ulcer or lesions
Heme: No LAD
Psych: Calm
Neuro: AAOx3
Diagnostic findings:
IMPRESSION:
Small bowel obstruction with transition mid abdomen, suspicious for adhesion. No pneumatosis. No perforation.
Moderate distention of the stomach. Recommend nasogastric tube placement.
Rounded fluid structure to the left of midline in the pelvis. This could represent fluid distention of the endometrial canal. Consider further evaluation/follow-up nonemergent pelvic ultrasound.
Discharge disposition:
Home
Discharge Plan
-
Patient Disposition: Home (Routine Discharge)
Discharge Diagnosis/Procedures: Small bowel obstruction
Diet: Low Residue
Activity: As tolerated
Instructions: Low-fiber diet, Small bowel obstruction (DC)
Referrals:
Joe Manning DO [Family Provider, [facility]]
Prescriptions:
Continued
escitalopram oxalate 20 MG tablet
20 mg PO QPM
simvastatin 20 MG tablet
20 mg PO QPM
amlodipine 5 MG tablet
5 mg PO QPM
metoprolol succinate 25 MG tablet extended release 24 hr
25 mg PO QPM
amiodarone [Pacerone] 200 MG tablet
200 mg PO QPM Qty: 30 0RF
Xarelto 20 MG tablet
20 mg PO QPM Qty: 30 0RF
famotidine [Pepcid] 20 mg Tablet
20 mg PO QPM
furosemide [Lasix] 20 mg Tablet
20 mg PO DAILY
biotin 5,000 mcg Tablet, Sublingual
5,000 mcg SUBLINGUAL DAILY
Breztri Aerosphere 160-9-4.8 mcg/actuation Hfa Aerosol Inhaler
2 inh INHALATION BID
arformoterol 15 mcg/2 mL Solution For Nebulization
2 ml INHALATION DAILY
bupropion HCl 150 mg Tablet Extended Release 24 Hr
150 mg PO DAILY
Discharge Orders:
Discharge Patient (As Directed); Ordered 12/31/24
Ordered By: Tiarra Kearney
Discharge Date and Time
Discharge Date/Time: 12/31/24 13:27
Print Language: HAITIAN
[2024-12-31 11:19] VITALS: BP 143/66
--- NOTE | 2024-12-31 12:14 | CM ---
Chart reviewed plan is to home no needs.
Plan; Home no needs.
== END 2024-12-31 13:27 | disposition home or self-care (01) | DRG 389 ==
LOC: 4 WEST ACU 05:36
PROVIDERS: Internal Medicine; Physician Assistant; Student in an Organized Health Care Education/Training Program; ADMITTING PHYSICIAN Internal Medicine; ATTENDING PHYSICIAN Internal Medicine; CONSULT PHYSICIAN Internal Medicine; CONSULT PHYSICIAN Surgery; EMERGENCY PHYSICIAN Emergency Medicine; FAMILY PHYSICIAN Family Medicine
DX: K56.50 Intestinal adhesions [bands], unspecified as to partial versus complete obstruction (principal); E87.1 Hypo-osmolality and hyponatremia; N17.9 Acute kidney failure, unspecified; N39.0 Urinary tract infection, site not specified; I48.0 Paroxysmal atrial fibrillation; Z86.711 Personal history of pulmonary embolism; I25.10 Atherosclerotic heart disease of native coronary artery without angina pectoris; N18.32 Chronic kidney disease, stage 3b; I12.9 Hypertensive chronic kidney disease with stage 1 through stage 4 chronic kidney disease, or unspecified chronic kidney disease; K21.9 Gastro-esophageal reflux disease without esophagitis; E78.00 Pure hypercholesterolemia, unspecified; E03.9 Hypothyroidism, unspecified; E66.9 Obesity, unspecified; Z68.28 Body mass index [BMI] 28.0-28.9, adult; F32.A Depression, unspecified; Z87.442 Personal history of urinary calculi; Z79.01 Long term (current) use of anticoagulants; Z79.899 Other long term (current) drug therapy; E87.5 Hyperkalemia; G47.33 Obstructive sleep apnea (adult) (pediatric); J43.9 Emphysema, unspecified; J45.909 Unspecified asthma, uncomplicated; Z66 Do not resuscitate; Z90.49 Acquired absence of other specified parts of digestive tract
CPT/HCPCS: 43752; 71046; 74176; 80048; 80053; 81003; 81015; 83690; 83735; 85025; 85027; 85730; 87077; 87086; 94640; 96374; 97116; 97162; 97167; 99285

== ENCOUNTER → 2025-01-21 09:58 | Outpatient (REF) | payer MEDICARE, OTHER, SELFPAY ==
[2025-01-21 10:44] LABS: Hematocrit 41.0 % (37.0-47.0); Hemoglobin 13.2 g/dL (12.0-16.0); Mean Corp Hgb Conc. 32.2 g/dL (33.0-37.0); Mean Corpuscular Volume 90.9 fL (81.0-99.0); Nucleated Red Blood Cells % 0 %; Platelet Count 267 10^3/uL (130-400); Red Cell Dist. Width 13.3 % (11.5-14.5)
[2025-01-21 11:13] LABS: INR 2.10; PT 24.1 Sec (11.4-14.6)
[2025-01-21 16:49] LABS: ALT (SGPT) 20 U/L (0-35); AST (SGOT) 18 U/L (14-36); Albumin 4.0 g/dl (3.5-5.0); Alkaline Phosphatase 57 U/L (38-126); Blood Urea Nitrogen 29 mg/dl (7-17); Calcium 9.2 mg/dl (8.4-10.2); Carbon Dioxide 27 mmol/L (22-30); Chloride 103 mmol/L (98-107); Glucose 109 mg/dl (70-99); Magnesium 2.1 mg/dl (1.6-2.3); Potassium 4.3 mmol/L (3.5-5.1); Sodium 135 mmol/L (135-145); Total Protein 7.2 g/dl (6.3-8.2); eGFR 48.63
== END ==
LOC: SDSPAT 09:58
PROVIDERS: ATTENDING PHYSICIAN Internal Medicine Cardiovascular Disease; FAMILY PHYSICIAN Family Medicine
DX: I48.0 Paroxysmal atrial fibrillation (principal)
CPT/HCPCS: 36415; 80053; 83735; 85025; 85610; 86850; 86900; 86901; 93005

== ENCOUNTER 2025-02-03 09:31 | Day surgery (SDC) | payer MEDICARE, OTHER, SELFPAY | END 2025-02-03 12:19 | disposition home or self-care (01) | LOC: CATH 09:31 | PROVIDERS: ATTENDING PHYSICIAN Internal Medicine Cardiovascular Disease; FAMILY PHYSICIAN Family Medicine; OTHER PHYSICIAN Internal Medicine Cardiovascular Disease | DX: I08.0 Rheumatic disorders of both mitral and aortic valves (principal); I08.8 Other rheumatic multiple valve diseases; I49.5 Sick sinus syndrome; I10 Essential (primary) hypertension; E78.5 Hyperlipidemia, unspecified; Z86.711 Personal history of pulmonary embolism; E11.9 Type 2 diabetes mellitus without complications; F32.A Depression, unspecified; F41.9 Anxiety disorder, unspecified; G47.33 Obstructive sleep apnea (adult) (pediatric); I70.0 Atherosclerosis of aorta | CPT/HCPCS: 93312; 93320; 93325 ==

== ENCOUNTER 2025-02-04 05:52 | Day surgery (SDC) | payer MEDICARE, OTHER, SELFPAY ==
[2025-01-21 10:06] VITALS: BMI 29.4
[2025-02-04] VITALS (18 sets, daily range): BP systolic 96–150; BP diastolic 47–69; BMI 29.4
[2025-02-04] MEDS: TYLENOL 1000 MG PO (07:13)
--- NOTE | 2025-02-04 10:13 | ITS.CL.ABL ---
[employer] - Ablation
Ablation
Procedure Report:
ELECTROPHYSIOLOGIC STUDY AND POSSIBLE ABLATION
DATE: February 04, 2025
Primary Care Provider: Dr. Tess Gordon
INDICATION:
Symptomatic Atrial Fibrillation.
Persistent
HISTORY: See H and P.
Symptomatic AF, poorly controlled with attempted medical therapy.
Prior PVI in 2011 and due to recurrence had repeat PVI/left atrial mapping and ablation in 2019.
She again recurred with symptomatic atrial fibrillation.
Despite amiodarone continues to have symptomatic episodes.
She presents today for mapping and ablation targeting her atrial tachyarrhythmias which have been both atrial fibrillation and atrial tachycardia.
Outpatient monitoring from October 2023 demonstrated� sinus rhythm without atrial fibrillation.� Rates in sinus rhythm between 27 and 60 bpm, averaging 49 bpm.� There were several asymptomatic pauses the longest of which was 4 seconds in duration.�
There are also several periods of type I second-degree AV block which were asymptomatic. Overall there were no symptoms reported by the patient.��There was concern given her significant bradycardia and therefore beta-klaus was discontinued in Oct
2023.� �
She remains on amiodarone 200 mg daily.
Additional medical history includes:
She has a history of paroxysmal atrial fibrillation, SSS, obstructive lung disease (Follows with Dr Reynolds), LIAN but CPAP intolerant, obesity, HTN, dyslipidemia, cecal mass resected in 2021, unprovoked pulmonary embolism in 2016
HAS-BLED: 3
Age
Abnormal Renal Function
H/O Bleeding (Vaginal bleeding)
CHADSVASc: 3
HTN
Age
F Gender
PRESENTING RHYTHM: SR
HISTORY: See H and P.
Symptomatic AF, poorly controlled with attempted medical therapy.
ANTIARRHYTHMIC DRUG: Amiodarone 200 mg twice daily
ANTICOAGULATION: Rivaroxaban 20 mg daily
'TIME-OUT': called and confirmed.
SEDATION/ANESTHESIA: provided via the anesthesia department using general anesthesia.
PROCEDURE:
Ultrasound Guidance with real-time visualization of needle insertion and vessel patency performed by me for femoral venous Vascular Access.
Under real-time US guidance, the needle was advanced with negative pressure into the vein. The needle was seen entering the vessel lumen with a good return of dark red flow, the syringe was removed, non-pulsatile, dark red blood low was noted and
the wire was passed without difficulty, then the needle was removed. US confirmed the wire was in the vein, not going into an artery,
Images were taken and saved for the patient's permanent record. Imaging findings typical femoral venous anatomy. Direct visualization of needle puncture into the femoral vein was observed and recorded.
A decapolar CS catheter was placed within the CS for mapping and pacing.
The intracardiac ultrasound catheter was positioned in the RA for continuous intracardiac ultrasound imaging.
Heparin bolus and infusion to target ACT at 300 -350 seconds was administered. Transseptal puncture was performed. This entailed advancing a sheath with dilator into the superior vena cava and withdrawing both (monitoring intracardiac ultrasound,
fluoroscopy and tip pressure) with the tip oriented toward the atrial septum. The fossa ovalis was engaged (indicated by sudden displacement of the sheath tip as well as tenting of the fossa seen on intracardiac ultrasound).
Transseptal puncture was performed. Left atrial catheter position was confirmed by echocardiographic imaging, pressure monitoring (LA mean pressure [ ] mm Hg) and fluoroscopy. The sheath was advanced over the dilator and positioned in the left
atrium.
The Sphere 9 multipolar mapping/ablation Sphere-9 catheter was positioned through the transseptal sheath for high density mapping.
Geometry and voltage mapping was performed using the [employer] mapping system for three-dimensional electroanatomical mapping.
Catheter positioning was guided and confirmed using both I.C.E. and fluoroscopy.
High density electroanatomical three-dimensional mapping demonstrated four PVs: LSPV, LIPV, RSPV, RIPV.
Ablation strategy included PVI as well as mapping for extra PV contributors to atrial fibrillation which would also be targeted if present.
There is reconnection of the left inferior pulmonary vein towards its inferior quadrant. This was targeted with pulsed electric field energy delivery via the sphere 9 catheter, isolating the pulmonary vein.
After accomplishing pulmonary venous isolation, mapping identified additional areas likely to be extra PV contributors to atrial fibrillation. These areas demonstrated patchy low voltage as well as complex fractionated electrograms. These areas can
be sites for the formation of rotors which can drive and maintain atrial fibrillation. These areas are known to be significant contributors to initiation and perpetuation of atrial fibrillation.
Additional energy applications/additional ablation sets targeted extra PV contributors to atrial fibrillation.
Targets for additional PFA ablation included:
LA posterior wall targeted with pulsed electric field energy isolating the posterior wall of the left atrium
After ablation of the posterior wall, additional targets were addressed:
LA inferior floor
These areas were ablated using pulsed electric field energy eliminating the extra PV contributors to atrial fibrillation.
Post ablation mapping finds entrance and exit block at each of the pulmonary veins PVs (LSPV, LIPV, RSPV, RIPV), the LA posterior wall and at the additional line at the Inferior/floor of the LA.
Programmed electrostimulation was able to induce an atrial tachycardia/atrial flutter.
Entrainment from the right atrium found at the right atrium is outside the tachycardia circuit.
Extensive high-definition three-dimensional transapical mapping of the left atrium to find a focal atrial tachycardia at the interatrial septum which was then targeted with pulsed electric field energy terminating the atrial tachycardia/converting
it into a slower tachycardia at 430 ms.
Extensive mapping of this tachycardia defined a mitral annular clockwise reentrant circuit. A combination of delivery of pulsed electric field energy and radiofrequency energy with radiofrequency energy being delivered closer to the mitral valve
annulus within ablation line from the left inferior pulmonary vein down to the mitral valve annulus for slowed and then terminated the atrial flutter.
Next, during catheter manipulation a different atrial tachycardia at a much slower cycle length of 720 ms was observed. Mapping of this found a focal atrial tach along the anterior dome of the left atrium close to the ostium of the left atrial
appendage. Delivery of pulsed electric field energy to this area terminated the tachycardia to sinus rhythm.
I.C.E. :
Pre-Ablation Post-Ablation
LVEF: 55 % 55 %
WMA: none none
Pericardial effusion: none none
LA Pressure (mmHg) 6 15
COMPLICATIONS:
None
SUMMARY:
- Mapping and ablation to isolate the PVs resulting in electrical isolation of the pulmonary veins
- Additional AF ablation sets X 2 after PVI (LA posterior wall, Inf/floor of the LA posterior wall) resulting in elimination of the targeted extra PV contributors to atrial fibrillation (Post wall, Inf LA floor)
- Mapping and ablation of additional tachycardia X 3 (Two Focal LA tachycardias and LA Mitral annular flutter).
- 3-D Electroanatomical Mapping
- Intracardiac Ultrasound
- Ultrasound guidance for vascular access
Post ablation, I discussed today's findings and results with the patient's , Rober.
RECOMMENDATIONS:
- Observe in monitored bed.
- Maintain oral anticoagulation.
- Reduce amiodarone dose from 200 to 100 mg daily and that could be further consideration for discontinuation as an outpatient after several month
- Office visit with Destiny Holden in 3 to 4 months.
Copy to:
Dr. Tess Gordon
[2025-02-04 12:38] LABS: ACT-LR - POC > 397 Seconds (116-155)
[2025-02-04 12:38] LABS: ACT-LR - POC > 397 Seconds (116-155)
--- NOTE | 2025-02-04 13:38 | W.PN.UPDATE ---
Addendum entered and electronically signed by ROSLYN Dugan 02/04/25 16:20:
Pt oob ambulating, urinating without difficulty, no groin issues. At 1400, was oob walking and groin started to bleed. She returned to bed, manual compression applied with good hemostasis. Remained on bedrest for another 45 minutes and now oob,
groin stable, no further bleed. No HT, soft with ecchymosis noted toward pubis and laterally from dressing, no pain or discomfort.
OK for d/c home.
Original Note:
Update Note
Progress Note Update
Pt seen post PFA. Right groin site without ht/bleeding, non tender. Post EKG SB w/1st deg AVB as before, no acute changes. Resume Xarelto tonight at usual time. Decrease amiodarone to 100mg daily. Followup at [facility] in 3 months. Home today if groin
site/tele remain stable.
== END 2025-02-04 16:00 | disposition home or self-care (01) ==
LOC: CATH 05:52
PROVIDERS: ATTENDING PHYSICIAN Internal Medicine Cardiovascular Disease; FAMILY PHYSICIAN Family Medicine
DX: I48.0 Paroxysmal atrial fibrillation (principal); Z79.01 Long term (current) use of anticoagulants; I49.5 Sick sinus syndrome; Z86.711 Personal history of pulmonary embolism; E78.5 Hyperlipidemia, unspecified; K21.9 Gastro-esophageal reflux disease without esophagitis; J44.9 Chronic obstructive pulmonary disease, unspecified; R73.03 Prediabetes; F32.A Depression, unspecified; F41.9 Anxiety disorder, unspecified; Z79.899 Other long term (current) drug therapy; Z77.22 Contact with and (suspected) exposure to environmental tobacco smoke (acute) (chronic); I12.9 Hypertensive chronic kidney disease with stage 1 through stage 4 chronic kidney disease, or unspecified chronic kidney disease; N18.30 Chronic kidney disease, stage 3 unspecified; E66.9 Obesity, unspecified; G47.33 Obstructive sleep apnea (adult) (pediatric); I44.1 Atrioventricular block, second degree; I47.19 Other supraventricular tachycardia; N20.0 Calculus of kidney; Z87.440 Personal history of urinary (tract) infections
CPT/HCPCS: C1733; C1766; C1730; C1894; C1892; C1759; 85347; 93005; 93656; 93657

== ENCOUNTER → 2025-02-06 08:23 | Outpatient (REF) | payer MEDICARE, OTHER, SELFPAY | LOC: HWRAD 08:23 | PROVIDERS: ATTENDING PHYSICIAN Family Medicine | DX: R31.9 Hematuria, unspecified (principal); Z79.01 Long term (current) use of anticoagulants | CPT/HCPCS: 76770 ==

== ENCOUNTER → 2025-02-20 13:42 | Outpatient (REF) | payer MEDICARE, OTHER, SELFPAY | LOC: HWRAD 13:42 | PROVIDERS: ATTENDING PHYSICIAN Family Medicine; FAMILY PHYSICIAN Family Medicine | DX: R18.8 Other ascites (principal) | CPT/HCPCS: 76830; 76856 ==